=== PATIENT | male | born 1955 | race Caucasian/White ===

== ENCOUNTER 2017-02-08 02:01 | Emergency (ER) | payer BC, OTHER ==
[2017-02-08] MEDS ORDERED: Levofloxacin 500 MG Tab PO ONE (02:27)
[2017-02-08] MEDS ORDERED: Benzonatate 100 MG Cap PO ONE (02:31)
--- NOTE | 2017-02-08 02:31 | EDM.PDOC ---
ED HPI GENERAL MEDICAL PROBLEM - General Chief Complaint: Respiratory Problem Stated Complaint: COLD Time Seen by Provider: 02/08/17 02:28 - History of Present Illness INITIAL COMMENTS - FREE TEXT/NARRATIVE: four day history of non productive cough - Related Data Allergies Allergy/AdvReac Type Severity Reaction Status Date / Time No Known Allergies Allergy Verified 02/08/17 02:12 Home Meds: Home Meds Hydrochlorothiazide/Valsartan [Diovan HCT 80-12.5 MG] 1 tab PO DAILY 02/11/14 [ History] Metoprolol Succinate [Toprol XL] 100 mg PO DAILY 02/11/14 [History] Multivitamin [Multivitamins] 1 each PO DAILY 02/11/14 [History] [place]-3/DHA/Epa/Fish Oil [Fish Oil] 1 tab PO DAILY 02/11/14 [History] atorvaSTATin [Lipitor] 10 mg PO BEDTIME 02/11/14 [History] Aspirin [Nilam Chewable Aspirin] 81 mg PO DAILY 09/08/14 [History] Diclofenac Sodium [Voltaren 1% Gel] 1 applic TOP QID PRN 10/12/14 [History] Hydrocodone/Acetaminophen [Hydrocodon-Acetaminophn 10-325] 1 tab PO Q8HR PRN 09/27 [History] Tamsulosin HCl [Flomax] 0.4 mg PO DAILY 10/12/14 [History] Past Medical History HEENT History: Reports: None Cardiovascular History: Reports: Bypass, CAD Respiratory History: Reports: Other (See Below) Other Respiratory History: bronchitis Gastrointestinal History: Reports: None Genitourinary History: Reports: None Musculoskeletal History: Reports: None Neurological History: Reports: None Psychiatric History: Reports: None Endocrine/Metabolic History: Reports: None Dermatologic History: Reports: None - Infectious Disease History Infectious Disease History: Reports: Chicken Pox, Influenza - Past Surgical History HEENT Surgical History: Reports: None Cardiovascular Surgical History: Reports: Coronary Artery Bypass GI Surgical History: Reports: None Musculoskeletal Surgical History: Reports: None Social & Family History - Tobacco Use Smoking Status *Q: Former Smoker Years of Tobacco use: 15 Used Tobacco, but Quit: No Month Tobacco Last Used: 15yrs Tobacco Use Comment: quit 20 yrs ago Second Hand Smoke Exposure: Yes - Alcohol Use Days Per Week of Alcohol Use: 3 Number of Drinks Per Day: 6 Total Drinks Per Week: 18 - Recreational Drug Use Recreational Drug Use: No Drug Use in Last 12 Months: No ED ROS GENERAL - Review of Systems Review Of Systems: See Below Constitutional: Denies: Fever, Chills Respiratory: Reports: Cough. Denies: Wheezing, Sputum, Hemoptysis Cardiovascular: Denies: Chest Pain GI/Abdominal: Denies: Abdominal Pain ED EXAM, GENERAL - Physical Exam Exam: See Below General Appearance: Alert, No Apparent Distress Nose: No: Nasal Flaring Throat/Mouth: Normal Inspection, Normal Oropharynx, Normal Voice Head: No: Sinus Tenderness Respiratory/Chest: No Respiratory Distress, Lungs Clear Course - Vital Signs Last Recorded V/S: Last Vital Signs Temp 97.6 F 02/08/17 02:13 Pulse 77 02/08/17 02:13 Resp 20 02/08/17 02:13 BP 146/79 H 02/08/17 02:13 Pulse Ox 96 02/08/17 02:13 - Orders/Labs/Meds Orders: Active Orders 24 hr Category Date Time Status Benzonatate [Tessalon Perles] Med 02/08/17 02:31 Once 200 mg PO ONETIME ONE Medication Orders Benzonatate (Tessalon Perles) 200 mg PO ONETIME ONE Stop: 02/08/17 02:32 Meds: Medications Generic Name Dose Route Start Last Admin Trade Name Freq PRN Reason Stop Dose Admin Benzonatate 200 mg 02/08/17 02:31 Tessalon Perles PO 02/08/17 02:32 ONETIME ONE Discontinued Medications Generic Name Dose Route Start Last Admin Trade Name Freq PRN Reason Stop Dose Admin Levofloxacin 500 mg 02/08/17 02:27 Levaquin PO 02/08/17 02:28 ONETIME ONE Departure - Departure Time of Disposition: Disposition: Home, Self-Care 01 Condition: Good Clinical Impression: Acute bronchitis - Discharge Information Referrals: PCP,None [Primary Care Provider] - Forms: ED Department Discharge Additional Instructions: levaquin 500 mg daily x 7 days follow up if not improving within a week or so. tessalon perles 200 mg tid prn cough #20 one refill - My Orders Last 24 Hours: My Active Orders 02/08/17 02:31 Benzonatate [Tessalon Perles] 200 mg PO ONETIME ONE - Assessment/Plan Last 24 Hours: My Active Orders 02/08/17 02:31 Benzonatate [Tessalon Tracie] 200 mg PO ONETIME ONE
[2017-02-08 02:50] VITALS: BP 109/69
== END 2017-02-08 02:38 | disposition home or self-care (01) ==
LOC: MW.ED 02:01
DX: J20.9 Acute bronchitis, unspecified (principal); I25.810 Atherosclerosis of coronary artery bypass graft(s) without angina pectoris; Z95.1 Presence of aortocoronary bypass graft; Z87.891 Personal history of nicotine dependence
CPT/HCPCS: 99283; A9270

== ENCOUNTER 2017-09-20 03:56 | Observation (INO) | payer OTHER ==
[2017-09-20] MEDS ORDERED: Aspirin 81 MG Tab.Chew PO ONE (04:08)
[2017-09-20] MEDS ORDERED: Sodium Chloride 0.9% 2.5 ML Syringe FLUSH PRN (04:08)
[2017-09-20] MEDS ORDERED: Nitroglycerin 2% Oint 1 GM UD Packet TOP ONE (04:08)
[2017-09-20] MEDS: Sodium Chloride 0.9% 10 ML Syringe FLUSH PRN ×2 (04:10→04:16)
--- NOTE | 2017-09-20 04:12 | EDM.PDOC ---
ED HPI GENERAL MEDICAL PROBLEM - General Chief Complaint: Chest Pain Stated Complaint: CHEST PAINS Time Seen by Provider: 09/20/17 03:58 - History of Present Illness INITIAL COMMENTS - FREE TEXT/NARRATIVE: HISTORY AND PHYSICAL: History of present illness: The patient is a 62-year-old male with a history of hypertension and hypercholesterolemia as well as a CABG in [address] 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 He says the episodes will last several hours but he did not seek treatment with either his dairy equipment repairer or his family doctor. The patient says he came in this morning because at 2:30 he woke up and felt like his heart was beating with irregular beats and he felt some mid chest tightness associated with it and he was concerned. He was not short of breath or diaphoretic he was not nauseated nor did he vomit. The patient rated the tightness in the ED is a 1/10 and he did not take any medication prior to coming here. During the course of the EKG well in the ED he said his heart was still beating irregularly and hard even though he had a normal sinus rhythm with a normal rate. The patient arrives in our ED in our half after the onset of his symptoms drinking a warm full cup of coffee area patient is been eating and drinking normally and has had no upper respiratory symptoms fevers cough congestion and has been eating and drinking normally. Patient says he has not had a stress test or evaluation by his dairy equipment repairer in over 2 years. Review of systems: As per history of present illness and below otherwise all systems reviewed and negative. Past medical history: As per history of present illness and as reviewed below otherwise noncontributory. Surgical history: As per history of present illness and as reviewed below otherwise noncontributory. Social history: No reported history of drug or alcohol abuse. Family history: As per history of present illness and as reviewed below otherwise noncontributory. Physical exam: General: Well-developed overweight male who is nontoxic and speaking clearly in the ED. Has a slight dry cough of my evaluation his vital signs are reviewed by me HEENT: Atraumatic, normocephalic, pupils reactive, negative for conjunctival pallor or scleral icterus, mucous membranes moist, throat clear, neck supple, nontender, trachea midline. Lungs: Clear to auscultation, breath sounds equal bilaterally, chest nontender. He has a well-healed median sternotomy scar Heart: S1S2, regular, negative for clicks, rubs, or JVD. Abdomen: Soft, nondistended, nontender. Negative for masses or hepatosplenomegaly. Negative for costovertebral tenderness. Pelvis: Stable nontender. Genitourinary: Deferred. Rectal: Deferred. Extremities: Atraumatic, negative for cords or calf pain. Neurovascular unremarkable. No pedal edema Neuro: Awake, alert, oriented. Cranial nerves II through XII unremarkable. Cerebellum unremarkable. Motor and sensory unremarkable throughout. Exam nonfocal. Diagnostics: EKG CBC CMP INR troponin TSH chest x-ray Therapeutics: IV O2 monitor aspirin Nitropaste The patient's blood pressure was elevated on arrival and now after the Nitropaste it is normalized to 120s over 80s. I discussed with him and family at bedside all testing results and have recommended observation admission in light of his high risk category and presentation. The patient tells me that at home he has been noting that his blood pressures been on the low side and he called and made an appointment to see Dr. Sears our dairy equipment repairer. Here on presentation that was just the opposite. He is discussing what he would like to do with his significant other. I have also discussed with him the chest x-ray findings that do need further evaluation but likely not on this admission necessarily. According to the lab today the TSH will be delayed due to a mechanical problem with one of the machines. Patient is reluctant but agreeable for observation admission. He seems more concerned with his family history of diabetes and whether or not he has diabetes than on what he presented for today. Impression: Subjective palpitations and chest tightness/atypical chest pain Definitive disposition and diagnosis as appropriate pending reevaluation and review of above. chest Pain Score (Numeric/FACES): 1 - Related Data Allergies Allergy/AdvReac Type Severity Reaction Status Date / Time No Known Allergies Allergy Verified 09/20/17 04:08 Home Meds: Home Meds Hydrochlorothiazide/Valsartan [Diovan HCT 80-12.5 MG] 1 tab PO DAILY 02/11/14 [ History] Metoprolol Succinate [Toprol XL] 100 mg PO DAILY 02/11/14 [History] Multivitamin [Multivitamins] 1 each PO DAILY 02/11/14 [History] [place]-3/DHA/Epa/Fish Oil [Fish Oil] 1 tab PO DAILY 02/11/14 [History] atorvaSTATin [Lipitor] 10 mg PO BEDTIME 02/11/14 [History] Aspirin [Nilam Chewable Aspirin] 81 mg PO DAILY 09/08/14 [History] Tamsulosin HCl [Flomax] 0.4 mg PO DAILY 10/12/14 [History] Past Medical History HEENT History: Reports: None Cardiovascular History: Reports: Bypass, CAD Respiratory History: Reports: Other (See Below) Other Respiratory History: bronchitis Gastrointestinal History: Reports: None Genitourinary History: Reports: None Musculoskeletal History: Reports: None Neurological History: Reports: None Psychiatric History: Reports: None Endocrine/Metabolic History: Reports: None Dermatologic History: Reports: None - Infectious Disease History Infectious Disease History: Reports: Chicken Pox, Influenza - Past Surgical History HEENT Surgical History: Reports: None Cardiovascular Surgical History: Reports: Coronary Artery Bypass GI Surgical History: Reports: None Musculoskeletal Surgical History: Reports: None Social & Family History - Tobacco Use Smoking Status *Q: Former Smoker Years of Tobacco use: 15 Used Tobacco, but Quit: No Month Tobacco Last Used: 15yrs Second Hand Smoke Exposure: Yes - Alcohol Use Days Per Week of Alcohol Use: 3 Number of Drinks Per Day: 6 Total Drinks Per Week: 18 - Recreational Drug Use Recreational Drug Use: No Drug Use in Last 12 Months: No ED ROS GENERAL - Review of Systems Review Of Systems: ROS reveals no pertinent complaints other than HPI. ED EXAM, GENERAL - Physical Exam Exam: See Below (See dictation) Course - Vital Signs Last Recorded V/S: Last Vital Signs Temp 36.9 C 09/20/17 03:56 Pulse 56 L 09/20/17 04:53 Resp 18 09/20/17 04:53 BP 120/70 09/20/17 04:53 Pulse Ox 97 09/20/17 04:53 - Orders/Labs/Meds Orders: Active Orders 24 hr Category Date Time Status Cardiac Monitoring [RC] . DIRECTED Care 09/20/17 04:08 Active Oxygen Therapy, ED [RC] ASDIRECTED Care 09/20/17 04:08 Active Pulse Oximetry [RC] ASDIRECTED Care 09/20/17 04:08 Active Chest 1V Frontal [CR] Stat Exams 09/20/17 04:08 Taken COMPREHENSIVE METABOLIC PN,CMP [CHEM] Stat Lab 09/20/17 04:18 Results TROPONIN I [CHEM] Stat Lab 09/20/17 04:18 Results TSH [CHEM] Stat Lab 09/20/17 04:18 Results Sodium Chloride 0.9% [Saline Flush] Med 09/20/17 04:08 Active 10 ml FLUSH ASDIRECTED PRN Sodium Chloride 0.9% [Saline Flush] Med 09/20/17 04:08 Active 2.5 ml FLUSH ASDIRECTED PRN Saline Lock Insert [OM.PC] Stat Oth 09/20/17 04:08 Ordered Medication Orders Sodium Chloride (Saline Flush) 10 ml FLUSH ASDIRECTED PRN PRN Reason: Keep Vein Open Last Admin: 09/20/17 04:16 Dose: 10 ml Admin: 09/20/17 04:10 Dose: 10 ml Sodium Chloride (Saline Flush) 2.5 ml FLUSH ASDIRECTED PRN PRN Reason: Keep Vein Open Labs: Laboratory Tests 09/20/17 09/20/17 09/20/17 Range/Units 04:18 04:18 04:18 WBC 3.79 L (4.0-11.0) K/uL RBC 3.83 L (4.50-5.90) M/uL Hgb 11.8 L (13.0-17.0) g/dL Hct 34.9 L (38.0-50.0) % MCV 91.1 (80.0-98.0) fL MCH 30.8 (27.0-32.0) pg MCHC 33.8 (31.0-37.0) g/dL RDW Std Deviation 48.5 (28.0-62.0) fl RDW Coeff of Isela 15 (11.0-15.0) % Plt Count 145 L (150-400) K/uL MPV 9.20 (7.40-12.00) fL Neut % (Auto) 49.1 (48.0-80.0) % Lymph % (Auto) 38.0 (16.0-40.0) % Ida % (Auto) 8.4 (0.0-15.0) % Eos % (Auto) 4.2 (0.0-7.0) % Baso % (Auto) 0.3 (0.0-1.5) % Neut # (Auto) 1.9 (1.4-5.7) K/uL Lymph # (Auto) 1.4 (0.6-2.4) K/uL Ida # (Auto) 0.3 (0.0-0.8) K/uL Eos # (Auto) 0.2 (0.0-0.7) K/uL Baso # (Auto) 0.0 (0.0-0.1) K/uL Nucleated RBC % 0.0 /100WBC Nucleated RBCs # 0 K/uL INR 1.07 Sodium 138 (136-146) mmol/L Potassium 3.7 (3.5-5.1) mmol/L Chloride 104 (98-110) mmol/L Carbon Dioxide 25 (21-31) mmol/L BUN 15 (6.0-23.0) mg/dL Creatinine 0.9 (0.6-1.5) mg/dL Est Cr Clr Drug Dosing 86.74 mL/min Estimated GFR (MDRD) > 60.0 ml/min Glucose 110 (60-110) mg/dL Calcium 9.3 (8.8-10.8) mg/dL Total Bilirubin 0.6 (0.1-1.5) mg/dL AST 25 (5-40) IU/L ALT 32 (8-54) IU/L Alkaline Phosphatase 53 (40-150) Troponin I < 0.10 (0.0-0.29) NG/ML Total Protein 9.7 H (6.0-8.0) g/dL Albumin 3.3 L (3.4-4.8) g/dL Globulin 6.4 H (2.0-3.5) g/dL Albumin/Globulin Ratio 0.5 L (1.3-2.8) Meds: Medications Generic Name Dose Route Start Last Admin Trade Name Freq PRN Reason Stop Dose Admin Sodium Chloride 10 ml 09/20/17 04:08 09/20/17 04:16 Saline Flush FLUSH 10 ml ASDIRECTED PRN Administration Keep Vein Open Sodium Chloride 2.5 ml 09/20/17 04:08 Saline Flush FLUSH ASDIRECTED PRN Keep Vein Open Discontinued Medications Generic Name Dose Route Start Last Admin Trade Name Elaina PRN Reason Stop Dose Admin Aspirin 324 mg 09/20/17 04:08 09/20/17 04:15 Aspirin PO 09/20/17 04:09 324 mg ONETIME ONE Administration Nitroglycerin 0.5 gm 09/20/17 04:08 09/20/17 04:15 Nitro-Bid 2% TOP 09/20/17 04:09 0.5 gm ONETIME ONE Administration Departure - Departure Time of Disposition: 05:08 Disposition: Refer to Observation Condition: Good Clinical Impression: Atypical chest pain, Irregular heartbeat - Discharge Information Referrals: PCP,None [Primary Care Provider] - Forms: ED Department Discharge - My Orders Last 24 Hours: My Active Orders 09/20/17 04:08 Cardiac Monitoring [RC] . DIRECTED Oxygen Therapy, ED [RC] ASDIRECTED Pulse Oximetry [RC] ASDIRECTED Chest 1V Frontal [CR] Stat Sodium Chloride 0.9% [Saline Flush] 10 ml FLUSH ASDIRECTED PRN Sodium Chloride 0.9% [Saline Flush] 2.5 ml FLUSH ASDIRECTED PRN Saline Lock Insert [OM.PC] Stat 09/20/17 04:18 COMPREHENSIVE METABOLIC PN,CMP [CHEM] Stat TROPONIN I [CHEM] Stat TSH [CHEM] Stat - Assessment/Plan Last 24 Hours: My Active Orders 09/20/17 04:08 Cardiac Monitoring [RC] . DIRECTED Oxygen Therapy, ED [RC] ASDIRECTED Pulse Oximetry [RC] ASDIRECTED Chest 1V Frontal [CR] Stat Sodium Chloride 0.9% [Saline Flush] 10 ml FLUSH ASDIRECTED PRN Sodium Chloride 0.9% [Saline Flush] 2.5 ml FLUSH ASDIRECTED PRN Saline Lock Insert [OM.PC] Stat 09/20/17 04:18 COMPREHENSIVE METABOLIC PN,CMP [CHEM] Stat TROPONIN I [CHEM] Stat TSH [CHEM] Stat
[2017-09-20 04:41] LABS: CHLORIDE,CL 104 mmol/L (98-110); SODIUM,NA 138 mmol/L (136-146)
--- NOTE | 2017-09-20 08:12 | PCM.HP ---
H&P History of Present Illness - General Date of Service: 09/20/17 Admit Problem/Dx: Palpitations Source of Information: Patient History Limitations: Reports: No Limitations - History of Present Illness Initial Comments - Free Text/Narative: This 62 year old male with pmh of CAD, HTN, BPH, and CABG x4 in 2000 presented to the ED with feelings of irregular heartbeat. He reports for the last 2-3 weeks he has noticed, mainly in the evening or at night palpitations or irregular heartbeats. He denies associated symptoms such as dyspnea, lightheadedness. Last night he woke up around 3 am having these palpitations, but had some chest discomfort with it. No radiation of the pain, the pain was more of a tightness. Again no other associated symptoms. He reports he has had these feelings on and off since his CABG. He denies recent follow up with Cardiology and he sees his PCP once a year for meds. He has not had a stress test in a long time. He denies recent illness such as URI, no fevers, cough, abdominal pain or urinary troubles. No headaches. He reports drinking 2-3 cups of coffee daily, no other pop or energy drinks, does drink a lot of Vitamin Water. He reports his BP at home has been low recently, such as 96/50s. He stopped his Valsartan/HCTZ on his own and reports BP has been good. Again he had no symptoms with this low BP. Because of this, he made appointments with Dr. Cruz, his PCP and Dr Schneider for a full workup, which are scheduled for next week Sep 25 and . In the ED labwork all WNL. Troponin negative. EKG SR with no signs of acute ischemia. He was telling them he was having the irregular beats and palpitations , but nothing was noted on EKG or the monitor. BP on arrival to ED was 190/ 100s. He was given Nitro paste which lowered BP to 150s/80s. CXR negative for cardiopulmonary disease, but did not lucenies in bilateral clavicles and L proximal humerus. He will be admitted observation for atypical chest pain and palpitations. chest Pain Score (Numeric/FACES): 1 - Related Data Allergies/Adverse Reactions: Allergies Allergy/AdvReac Type Severity Reaction Status Date / Time No Known Allergies Allergy Verified 09/20/17 04:08 Home Medications: Home Meds Hydrochlorothiazide/Valsartan [Diovan HCTZ 80-12.5 MG] 1 tab PO DAILY 02/11/14 [ History] Metoprolol Succinate [Toprol XL 100mg] 100 mg PO BID 02/11/14 [History] Multivitamin [Multivitamins] 1 each PO DAILY 02/11/14 [History] [place]-3/DHA/Epa/Fish Oil [Fish Oil Dr 500 mg Softgel] 1 tab PO DAILY 02/11/14 [ History] atorvaSTATin [Lipitor] 10 mg PO BEDTIME 02/11/14 [History] Aspirin [Nilam Chewable Aspirin] 81 mg PO DAILY 09/08/14 [History] Tamsulosin HCl [Flomax] 0.4 mg PO DAILY 10/12/14 [History] Past Medical History - Past Health History Medical/Surgical History: Denies Medical/Surgical History HEENT History: Reports: None Cardiovascular History: Reports: Bypass, CAD, High Cholesterol, Hypertension. Denies: Afib, Blood Clots/VTE/DVT, Heart Failure, [place] Respiratory History: Reports: Bronchitis, Recurrent. Denies: COPD, PE, Sleep Apnea Gastrointestinal History: Reports: None. Denies: GERD, GI Bleed Genitourinary History: Reports: BPH Musculoskeletal History: Reports: None Neurological History: Reports: None. Denies: CVA, Migraines, TIA Psychiatric History: Reports: None Endocrine/Metabolic History: Reports: Obesity/BMI 30+. Denies: Diabetes, Type II, Hypothyroidism Dermatologic History: Reports: None - Infectious Disease History Infectious Disease History: Reports: Chicken Pox, Influenza - Past Surgical History HEENT Surgical History: Reports: None Cardiovascular Surgical History: Reports: Coronary Artery Bypass (x4) GI Surgical History: Reports: None Musculoskeletal Surgical History: Reports: None Social & Family History - Family History Cardiac: Reports: CAD, High Cholesterol, Hypertension, [place] Endocrine/Metabolic: Reports: Diabetes, Type I (brother), Diabetes, type II ( mother and brothers), Obesity/MBI 30+ - Tobacco Use Smoking Status *Q: Former Smoker Years of Tobacco use: 20 Packs/Tins Daily: 1 Used Tobacco, but Quit: Yes Month Tobacco Last Used: 15 years ago Second Hand Smoke Exposure: Yes - Caffeine Use Caffeine Use: Reports: Coffee (2-3 cups daily) - Alcohol Use Days Per Week of Alcohol Use: 3 Number of Drinks Per Day: 1 Total Drinks Per Week: 3 Alcohol Use Frequency: Rarely, Socially - Recreational Drug Use Recreational Drug Use: No Drug Use in Last 12 Months: No - Living Situation & Occupation Occupation: Employed H&P Review of Systems - Review of Systems: Review Of Systems: See Below General: Reports: No Symptoms. Denies: Fever, Chills, Malaise, Weakness HEENT: Reports: No Symptoms. Denies: Headaches, Sinus Congestion, Sore Throat Pulmonary: Reports: No Symptoms. Denies: Shortness of Breath, Wheezing, Cough, Sputum Cardiovascular: Reports: Chest Pain (last evening with palpitations, none since arrival to ED), Palpitations, Blood Pressure Problem. Denies: Dyspnea on Exertion, Edema, Lightheadedness, Syncope Gastrointestinal: Reports: No Symptoms, Flatus. Denies: Abdominal Pain, Black Stool, Bloody Stool, Nausea, Vomiting Genitourinary: Reports: No Symptoms. Denies: Dysuria, Frequency, Burning, Pain Musculoskeletal: Reports: No Symptoms. Denies: Neck Pain, Shoulder Pain, Arm Pain Skin: Reports: No Symptoms Psychiatric: Reports: No Symptoms Neurological: Reports: No Symptoms Hematologic/Lymphatic: Reports: No Symptoms Immunologic: Reports: No Symptoms Exam - Exam Exam: See Below - Vital Signs Vital Signs: Last Vital Signs Temp 98.3 F 09/20/17 05:50 Pulse 58 L 09/20/17 05:50 Resp 16 09/20/17 05:50 BP 143/81 H 09/20/17 05:50 Pulse Ox 98 09/20/17 05:50 Weight: 95.527 kg - Exam Quality Assessment: DVT Prophylaxis General: Alert, Oriented, Cooperative, Mild Distress HEENT: Conjunctiva Clear, Mucosa Moist & [place], Posterior Pharynx Clear, TMs Clear Neck: Supple, Trachea Midline, Full Range of Motion. No: Lymphadenopathy Lungs: Clear to Auscultation, Normal Respiratory Effort Cardiovascular: Regular Rate, Regular Rhythm, Normal S1, Normal S2. No: Irregular Rhythm, Tachycardia, Systolic Murmur GI/Abdominal Exam: Normal Bowel Sounds, Soft, Non-Tender, No Organomegaly, No Distention, No Abnormal Bruit, No Mass, Pelvis Stable Back Exam: Normal Inspection, Full Range of Motion, NT Extremities: Normal Inspection, Normal Range of Motion, Non-Tender, No Pedal Edema, Normal Capillary Refill Neurological: Cranial Nerves Intact, Reflexes Equal Bilateral Neuro Extensive - Mental Status: Alert, Oriented x3, Normal Mood/Affect, Normal Cognition Psychiatric: Alert, Normal Affect, Normal Mood - Patient Data Result Diagrams: 09/20/17 04:18 09/20/17 04:18 *Q Meaningful Use (ADM) - VTE *Q VTE Criteria *Q: - Stroke *Q Stroke Criteria *Q: - AMI *Q AMI Criteria *Q: - Problem List (1) Atypical chest pain SNOMED Code(s): 586115354 ICD Code: R07.89 - OTHER CHEST PAIN Status: Acute (2) Palpitation SNOMED Code(s): 12467712 ICD Code: R00.2 - PALPITATIONS Status: Acute (3) BPH (benign prostatic hyperplasia) SNOMED Code(s): 028377727 ICD Code: N40.0 - BENIGN PROSTATIC HYPERPLASIA WITHOUT LOWER URINRY TRACT SYMP Status: Chronic Qualifiers: Lower urinary tract symptom detail: urinary frequency (4) CAD (coronary artery disease) SNOMED Code(s): 13491980 ICD Code: I25.10 - ATHSCL HEART DISEASE OF [place] CORONARY ARTERY W/O ANG PCTRS Status: Chronic Qualifiers: Coronary Disease-Associated Artery/Lesion type: [place] artery [place] vs. transplanted heart: [place] heart Associated angina: without angina Qualified Code(s): I25.10 - Atherosclerotic heart disease of [place] coronary artery without angina pectoris (5) Hx of CABG SNOMED Code(s): 767337273 ICD Code: Z95.1 - PRESENCE OF AORTOCORONARY BYPASS GRAFT Status: Chronic (6) HTN (hypertension) SNOMED Code(s): 61197836 ICD Code: I10 - ESSENTIAL (PRIMARY) HYPERTENSION Status: Chronic Qualifiers: Hypertension type: essential hypertension Qualified Code(s): I10 - Essential (primary) hypertension Problem List Initiated/Reviewed/Updated: Yes Orders Last 24hrs: Active Orders 24 hr Category Date Time Status Communication Order [RC] STAT Care 09/20/17 08:09 Active Telemetry Monitoring [Cardiac Monitoring] [RC] . Care 09/20/17 05:26 Active DIRECTED Heart Healthy Diet [DIET] Diet 09/20/17 Breakfast Active GLYCOSYLATED HEMOGLOBIN,HGBA1C [CHEM] Routine Lab 09/20/17 08:08 Ordered LIPID PANEL [CHEM] Routine Lab 09/20/17 08:08 Ordered TROPONIN I [CHEM] Q6H Lab 09/20/17 10:18 Ordered TROPONIN I [CHEM] Q6H Lab 09/20/17 16:18 Ordered Aspirin Med 09/21/17 09:00 Ordered 81 mg PO DAILY Hydrochlorothiazide/Valsartan [Diovan HCTZ 80-12.5 MG] Med 09/20/17 09:00 Ordered 1 tab PO DAILY Metoprolol Succinate [Toprol XL] Med 09/20/17 09:00 Ordered 100 mg PO BID Multivitamin [Multivitamins] Med 09/20/17 09:00 Ordered 1 each PO DAILY [place]-3/DHA/Epa/Fish Oil [Fish Oil Dr 500 mg Softgel] Med 09/20/17 09:00 Ordered 1 tab PO DAILY Tamsulosin [Flomax] Med 09/20/17 09:00 Ordered 0.4 mg PO DAILY atorvaSTATin [Lipitor] Med 09/20/17 21:00 Ordered 10 mg PO BEDTIME Medication Orders Aspirin (Aspirin) 81 mg PO DAILY [facility] Atorvastatin Calcium (Lipitor) 10 mg PO BEDTIME [facility] Metoprolol Succinate (Toprol Xl) 100 mg PO BID [facility] Non-Formulary Medication (Hydrochlorothiazide/Valsartan [Diovan Hctz 80-12.5 Mg] ) 1 tab PO DAILY [facility] Non-Formulary Medication (Multivitamin [Multivitamins]) 1 each PO DAILY [facility] Non-Formulary Medication ([place]-3/Dha/Epa/Fish Oil [Fish Oil Dr 500 Mg Softgel] ) 1 tab PO DAILY [facility] Sodium Chloride (Saline Flush) 10 ml FLUSH ASDIRECTED PRN PRN Reason: Keep Vein Open Last Admin: 09/20/17 04:16 Dose: 10 ml Admin: 09/20/17 04:10 Dose: 10 ml Sodium Chloride (Saline Flush) 2.5 ml FLUSH ASDIRECTED PRN PRN Reason: Keep Vein Open Tamsulosin HCl (Flomax) 0.4 mg PO DAILY [facility] Assessment/Plan Comment:: This 62 year old male admitted with atypical chest pain and papitations 1. Atypical chest pain: Trend troponins, monitor on telemetry. Keep outpatient appointments and scheduled outpatient stress test. A1c 5.9 and cholesterol well controlled. Will hold valsartan/HCTZ and monitor BP on metoprolol alone. Asked him to, if possible, have someone bring in his home BP cuff and we can check it again ours to insure it is reading correctly. Spoke with patient regarding findings on CXR on clavicle and L humerus. Will obtain chest CT today and follow up with results. Will need PCP to follow for further needs. 12:30: Spoke with patient and his brother in room regarding Chest CT results. These show extensive small diffuse lucent areas within the visualized osseous structures, this most likely represents multiple myeloma versus metastatic disease, chronic appearing right 10th rib fracture, extensive round lytic changes within the visualized osseous structures including clavicles, sternum and spine. I have notified patient PCP, Dr Cruz and have ordered peripheral smear and free light chain gammopathy diagnostic, which includes SPEP. Adryan is following up with Dr Cruz on Sep 25. He is aware of pending labwork and any further work up or appointments will be arranged through Dr Cruz. I will hold off on arranging stress test and allow Dr Schneider to see patient at follow up on Sep 26 and discuss further workup at that time with possible diagnosis of multiple myeloma. 2. Palpitations: Encouraged to lessen coffee intake. No irregular rhythms noted on telemetry. 3. BP: Continue metoprolol 4. CAD: Continue statin and ASA. VTE prophylaxis: SCDs Dispo: Likely discharge this evening after last troponin. Discharge Plan: Final troponin negative. patient has no futher complaints. Telemetry has remained SR with to arrhythmias noted. Follow up has been arrange regarding Chest CT and blood work pending. Dr Cruz is aware and appointment is scheduled on Sep 25. He also has follow up with Dr Crowder on Sep 26. He is to continue all medications as previously prescribed. He is to return to ED or clinic if concerns should arise.
[2017-09-20] MEDS ORDERED: Fish Oil/Omega-3 Fatty Acids 1 Gm Cap PO SCH (09:00)
[2017-09-20] MEDS ORDERED: Multivitamins with Iron/Calcium/Folic Acid/Minerals Tab PO SCH (09:00)
[2017-09-20] MEDS ORDERED: Metoprolol Succinate 100 MG Tab.ER PO SCH (09:00)
[2017-09-20] MEDS ORDERED: Hydrochlorothiazide 25 MG Tab PO SCH (09:00)
[2017-09-20] MEDS ORDERED: Tamsulosin 0.4 MG Cap.ER PO SCH (09:00)
[2017-09-20] MEDS ORDERED: Acetaminophen 325 MG Tab PO PRN (09:29)
--- NOTE | 2017-09-20 10:51 | CR ---
EXAM DATE: 09/20/17 PATIENT'S AGE: 62 Patient: TONY MOORE Facility: [place], [place] Site . Site : [id number] Study: XRay Chest [id number]/8/2018 4:37:45 AM Ordering Physician: Lonnie Coto Final Report: Indication: Chest pain Technique: Chest 1 view Comparison: 05/01/2015 Findings/Impression: Cardiovascular and mediastinum: Mild cardiomegaly, partially related to the portable technique. Sternotomy sutures and mediastinal clips. Lungs and pleural space: Lungs are clear. No sign of infiltrate or mass. No sign of pleural effusion. No pneumothorax. Bones and soft tissues: Apparent lucent foci in the clavicles and proximal left humerus. Recommend further imaging evaluation. Dictated by Ryder Redding MD @ 09/20/2017 4:55:27 AM Dictated by: Ryder Redding MD @ 09/20/2017 04:55:32 (Electronic Signature) Report Signed by Proxy. KRISTINE
--- NOTE | 2017-09-20 11:41 | CT ---
EXAMINATION: CT chest without contrast HISTORY: Evaluate lucencies COMPARISON: Chest radiograph from the same day TECHNIQUE: Axial CT images obtained through the chest without contrast. Coronal and sagittal reconstr uctions obtained. FINDINGS: The lungs are clear without focal consolidation. No pleural effusion or pneumothorax. The h eart is normal in size without a pericardial effusion. Median sternotomy wires are noted. Coronary ar donovan calcifications are present. No mediastinal, hilar, or axillary lymphadenopathy. The central airw ays are clear. Cholelithiasis. Otherwise the visualized images of the upper abdomen appear normal. There is a chronic appearing right 10th rib fracture. Extensive round lytic changes noted within the visualized osseous structures including the clavicles, sternum, and spine. IMPRESSION: 1. Extensive small diffuse lucent areas within the visualized osseous structures. This mostly likely represents multiple myeloma versus metastatic disease. 2. No acute cardiopulmonary findings. 3. Cholelithiasis without evidence of cholecystitis.
[2017-09-20 16:02] VITALS: BP 146/72
[2017-09-20] MEDS ORDERED: atorvaSTATin 10 MG Tab PO SCH (21:00)
[2017-09-21] MEDS ORDERED: Aspirin 81 MG Tab.Chew PO SCH (09:00)
== END 2017-09-20 17:30 | disposition home or self-care (01) ==
LOC: MW.ED 03:56 → MW.MS 05:09
PROVIDERS: ADMIT Family Medicine; ATTEND Family Medicine
DX: R07.89 Other chest pain (principal); R00.2 Palpitations; I25.10 Atherosclerotic heart disease of native coronary artery without angina pectoris; I10 Essential (primary) hypertension; N40.0 Benign prostatic hyperplasia without lower urinary tract symptoms; E78.00 Pure hypercholesterolemia, unspecified; E66.9 Obesity, unspecified; Z68.30 Body mass index [BMI] 30.0-30.9, adult; Z95.1 Presence of aortocoronary bypass graft; Z79.899 Other long term (current) drug therapy; Z79.82 Long term (current) use of aspirin; Z87.891 Personal history of nicotine dependence
CPT/HCPCS: 36415; 71045; 71250; 80053; 80061; 83036; 83883; 84165; 84443; 84484; 85025; 85610; 86334; 88104; 93005; 99285; A9270; G0378; 99284

== ENCOUNTER 2017-10-17 20:14 | Emergency (ER) | payer OTHER ==
[2017-10-17] MEDS ORDERED: Albuterol/Ipratropium 3.0-0.5 MG/3 ML Neb Soln NEB ONE (20:37)
--- NOTE | 2017-10-17 20:41 | EDM.PDOC ---
ED HPI GENERAL MEDICAL PROBLEM - General Chief Complaint: Respiratory Problem Stated Complaint: COUGH/CONGESTION Time Seen by Provider: 10/17/17 20:23 - History of Present Illness INITIAL COMMENTS - FREE TEXT/NARRATIVE: HISTORY AND PHYSICAL: History of present illness: The patient is a 62-year-old male with a history of hypertension and hypercholesterolemia CABG in 2000 BPH and who is scheduled for an angioplasty next week in [place] for a blockage in who presents with a 5-7 day history of feeling rundown, body aches and malaise, some intermittent fevers and 2 days of dry cough hacking cough and a runny nose. The patient says that the fever was very high but he has not had fever over the last 2 days. He's had no abdominal pain vomiting or diarrhea and is taking his fluids. He has no urinary complaints. The patient has a significant history in that he was admitted here September 20 for chest pain and had a rule out down and then subsequent he had a stress test and was referred to [facility] in [place] where he is going to have his heart catheter. He currently has no chest pain or heart pain. He does not feel short of breath When he is coughing. On that last admission there were some abnormalities seen in his clavicles and he had a workup which has connected him with our oncology center for workup of multiple myeloma. He currently has that workup in hold in order to get the cardiac duration settled next week and then he will begin further evaluation and care for the multiple myeloma afterwards. He is concerned because of the fevers cough runny nose as he does not want to stop any of the plans or appointments he has in place. He says he gets bronchitis on a regular basis and he is not a smoker. Again he does not have any cardiac chest pain or shortness of breath here nor has he had that over the last several days. Review of systems: As per history of present illness and below otherwise all systems reviewed and negative. Past medical history: As per history of present illness and as reviewed below otherwise noncontributory. Surgical history: As per history of present illness and as reviewed below otherwise noncontributory. Social history: No reported history of drug or alcohol abuse. Family history: As per history of present illness and as reviewed below otherwise noncontributory. Physical exam: General: Well-developed well-nourished man who is a dry cough on my evaluation and slight nasal quality to voice. Vital signs are reviewed by me and he is not breathless. HEENT: Atraumatic, normocephalic, pupils reactive, negative for conjunctival pallor or scleral icterus, mucous membranes moist, throat clear, neck supple, nontender, trachea midline. Lungs: Clear to auscultation, breath sounds equal bilaterally, chest nontender. No work of breathing, no sensory muscle use no wheezing or stridor but some occasional coarse breath sounds bilaterally Heart: S1S2, regular rate and rhythm no overt murmurs. Abdomen: Soft, nondistended, nontender. NABS Pelvis: Stable nontender. Genitourinary: Deferred. Rectal: Deferred. Extremities: Atraumatic, negative for cords or calf pain. Neurovascular unremarkable. Neuro: Awake, alert, oriented. Cranial nerves II through XII unremarkable. Cerebellum unremarkable. Motor and sensory unremarkable throughout. Exam nonfocal. Diagnostics: EKG chest x-ray CBC CMP lactic acid influenza swab blood cultures Therapeutics: DuoNeb spacer and spacer teaching Patient states that he does feel better after the nebulizer treatment and we will give him a spacer and albuterol for home. He is aware of all testing results and need for follow-up. I will give him Insty Meds for albuterol, Z-Bashir and cough medication Phenergan with codeine Impression: Acute bronchitis Definitive disposition and diagnosis as appropriate pending reevaluation and review of above. chest Pain Score (Numeric/FACES): 2 - Related Data Allergies Allergy/AdvReac Type Severity Reaction Status Date / Time No Known Allergies Allergy Verified 10/17/17 20:27 Home Meds: Home Meds Hydrochlorothiazide/Valsartan [Diovan HCTZ 80-12.5 MG] 1 tab PO DAILY 02/11/14 [ History] Metoprolol Succinate [Toprol XL 100mg] 100 mg PO BID 02/11/14 [History] Multivitamin [Multivitamins] 1 each PO DAILY 02/11/14 [History] [place]-3/DHA/Epa/Fish Oil [Fish Oil Dr 500 mg Softgel] 1 tab PO DAILY 02/11/14 [ History] atorvaSTATin [Lipitor] 10 mg PO BEDTIME 02/11/14 [History] Aspirin [Nilam Chewable Aspirin] 81 mg PO DAILY 09/08/14 [History] Tamsulosin HCl [Flomax] 0.4 mg PO DAILY 10/12/14 [History] Past Medical History - Past Health History Medical/Surgical History: Denies Medical/Surgical History HEENT History: Reports: None Cardiovascular History: Reports: Bypass, CAD, High Cholesterol, Hypertension Respiratory History: Reports: Bronchitis, Recurrent, Pneumonia, Recurrent Other Respiratory History: bronchitis Gastrointestinal History: Reports: None Genitourinary History: Reports: BPH Musculoskeletal History: Reports: None Neurological History: Reports: None Psychiatric History: Reports: None Endocrine/Metabolic History: Reports: Obesity/BMI 30+ Hematologic History: Reports: None Immunologic History: Reports: None Other Oncologic History: stated possible melanoma Dermatologic History: Reports: None - Infectious Disease History Infectious Disease History: Reports: None - Past Surgical History Head Surgeries/Procedures: Reports: None HEENT Surgical History: Reports: None Cardiovascular Surgical History: Reports: Coronary Artery Bypass GI Surgical History: Reports: None Musculoskeletal Surgical History: Reports: None Social & Family History - Family History Family Medical History: Noncontributory Cardiac: Reports: CAD, High Cholesterol, Hypertension, [place] Endocrine/Metabolic: Reports: Diabetes, Type I, Diabetes, type II, Obesity/MBI 30+ - Tobacco Use Smoking Status *Q: Former Smoker Years of Tobacco use: 20 Packs/Tins Daily: 1 Used Tobacco, but Quit: Yes Month Tobacco Last Used: 15 years ago Second Hand Smoke Exposure: Yes - Caffeine Use Caffeine Use: Reports: Coffee (2-3 cups daily) - Alcohol Use Days Per Week of Alcohol Use: 3 Number of Drinks Per Day: 1 Total Drinks Per Week: 3 - Recreational Drug Use Recreational Drug Use: No Drug Use in Last 12 Months: No - Living Situation & Occupation Occupation: Employed ED ROS GENERAL - Review of Systems Review Of Systems: ROS reveals no pertinent complaints other than HPI. ED EXAM, GENERAL - Physical Exam Exam: See Below (See dictation) Course - Vital Signs Last Recorded V/S: Last Vital Signs Temp 36.6 C 10/17/17 20:28 Pulse 76 10/17/17 20:28 Resp 19 10/17/17 20:28 BP 177/97 H 10/17/17 20:28 Pulse Ox 98 10/17/17 20:28 - Orders/Labs/Meds Orders: Active Orders 24 hr Category Date Time Status Communication Order [RC] STAT Care 10/17/17 22:33 Ordered EKG Documentation Completion [RC] STAT Care 10/17/17 20:36 Active RT Aerosol Therapy [RC] ASDIRECTED Care 10/17/17 20:37 Active Chest 2V [CR] Stat Exams 10/17/17 20:36 Taken CULTURE BLOOD [BC] Stat Lab 10/17/17 20:58 Received CULTURE BLOOD [BC] Stat Lab 10/17/17 21:04 Received Blood Culture x2 Reflex Set [OM.PC] Stat Oth 10/17/17 20:36 Ordered Labs: Laboratory Tests 10/17/17 10/17/17 10/17/17 Range/Units 20:58 21:04 21:04 WBC 4.57 (4.0-11.0) K/uL RBC 3.27 L (4.50-5.90) M/uL Hgb 10.0 L (13.0-17.0) g/dL Hct 29.7 L (38.0-50.0) % MCV 90.8 (80.0-98.0) fL MCH 30.6 (27.0-32.0) pg MCHC 33.7 (31.0-37.0) g/dL RDW Std Deviation 49.0 (28.0-62.0) fl RDW Coeff of Isela 15 (11.0-15.0) % Plt Count 161 (150-400) K/uL MPV 8.90 (7.40-12.00) fL Neut % (Auto) 62.5 (48.0-80.0) % Lymph % (Auto) 24.3 (16.0-40.0) % [place] % (Auto) 8.8 (0.0-15.0) % Eos % (Auto) 4.2 (0.0-7.0) % Baso % (Auto) 0.2 (0.0-1.5) % Neut # (Auto) 2.9 (1.4-5.7) K/uL Lymph # (Auto) 1.1 (0.6-2.4) K/uL [place] # (Auto) 0.4 (0.0-0.8) K/uL Eos # (Auto) 0.2 (0.0-0.7) K/uL Baso # (Auto) 0.0 (0.0-0.1) K/uL Nucleated RBC % 0.0 /100WBC Nucleated RBCs # 0 K/uL Lactate 1.0 (0.20-2.00) mmol/L Sodium 137 (136-148) mmol/L Potassium 3.6 (3.5-5.1) mmol/L Chloride 103 (98-107) mmol/L Carbon Dioxide 25.0 (21.0-32.0) mmol/L BUN 7 (7.0-18.0) mg/dL Creatinine 0.9 (0.8-1.3) mg/dL Est Cr Clr Drug Dosing 86.74 mL/min Estimated GFR (MDRD) > 60.0 ml/min Glucose 107 H (74-106) mg/dL Calcium 8.3 L (8.5-10.1) mg/dL Total Bilirubin 0.3 (0.2-1.0) mg/dL AST 19 (5-40) IU/L ALT 25 (8-54) IU/L Alkaline Phosphatase 48 (46-116) U/L Total Protein 9.2 H (6.4-8.2) g/dL Albumin 2.0 L (3.4-5.0) g/dL Globulin 7.2 H (2.0-3.5) g/dL Albumin/Globulin Ratio 0.3 L (1.3-2.8) Meds: Medications Discontinued Medications Generic Name Dose Route Start Last Admin Trade Name Freq PRN Reason Stop Dose Admin Albuterol/Ipratropium 3 ml 10/17/17 20:37 10/17/17 21:02 Duoneb 3.0-0.5 Mg/3 Ml NEB 10/17/17 20:38 3 ml ONETIME ONE Administration Departure - Departure Time of Disposition: 22:34 Disposition: Home, Self-Care 01 Condition: Good Clinical Impression: Acute bronchitis Qualifiers: Bronchitis organism: unspecified organism Qualified Code(s): J20.9 - Acute bronchitis, unspecified - Discharge Information Referrals: Rich Cruz MD [Primary Care Provider] - Forms: ED Department Discharge Additional Instructions: The following information is given to patients seen in the emergency department who are being discharged to home. This information is to outline your options for follow-up care. We provide all patients seen in our emergency department with a follow-up referral. The need for follow-up, as well as the timing and circumstances, are variable depending upon the specifics of your emergency department visit. If you don't have a primary care physician on staff, we will provide you with a referral. We always advise you to contact your personal physician following an emergency department visit to inform them of the circumstance of the visit and for follow-up with them and/or the need for any referrals to a consulting specialist. The emergency department will also refer you to a specialist when appropriate. This referral assures that you have the opportunity for followup care with a specialist. All of these measure are taken in an effort to provide you with optimal care, which includes your followup. Under all circumstances we always encourage you to contact your private physician who remains a resource for coordinating your care. When calling for followup care, please make the office aware that this follow-up is from your recent emergency room visit. If for any reason you are refused follow-up, please contact the [facility] emergency department at and ask to speak to the emergency department charge nurse. [facility] Primary care- [place] [address] Rest push hydration and take all home meds as well as use all new medications as prescribed. Please call and follow-up with your provider in the clinic for reevaluation further care and return to ER as needed and as discussed. Continue with Tylenol/ibuprofen for fevers. You have been given Insty Meds for albuterol which you are to use with her spacer, Phenergan with codeine for sleep times, and a Z-Bashir. - My Orders Last 24 Hours: My Active Orders 10/17/17 20:36 EKG Documentation Completion [RC] STAT Chest 2V [CR] Stat Blood Culture x2 Reflex Set [OM.PC] Stat 10/17/17 20:37 RT Aerosol Therapy [RC] ASDIRECTED 10/17/17 20:58 CULTURE BLOOD [BC] Stat 10/17/17 21:04 CULTURE BLOOD [BC] Stat 10/17/17 22:33 Communication Order [RC] STAT - Assessment/Plan Last 24 Hours: My Active Orders 10/17/17 20:36 EKG Documentation Completion [RC] STAT Chest 2V [CR] Stat Blood Culture x2 Reflex Set [OM.PC] Stat 10/17/17 20:37 RT Aerosol Therapy [RC] ASDIRECTED 10/17/17 20:58 CULTURE BLOOD [BC] Stat 10/17/17 21:04 CULTURE BLOOD [BC] Stat 10/17/17 22:33 Communication Order [RC] STAT
[2017-10-17 21:38] LABS: CHLORIDE,CL 103 mmol/L (98-107); SODIUM,NA 137 mmol/L (136-148)
[2017-10-17 22:52] VITALS: BP 160/88
--- NOTE | 2017-10-18 10:13 | CR ---
EXAM DATE: 10/17/17 PATIENT'S AGE: 62 Patient: TONY MOORE Facility: [place], [place] Site . Site : 1955 Study: XRay Chest [id number] 9:28:16 PM Ordering Physician: Lonnie Coto Final Report: INDICATION: Shortness of breath TECHNIQUE: Chest 2 views. COMPARISON: June 20, 2011 FINDINGS: Cardiovascular and mediastinum: Status post median sternotomy. Stable cardiac size. Lungs and pleural spaces: Lungs are clear. No sign of infiltrate or mass. No sign of pleural effusion. No pneumothorax. Bones and soft tissues: No significant findings. IMPRESSION: No sign of acute disease. Dictated by Freya Smith MD @ Oct 17 2017 9:31PM (Electronic Signature) Report Signed by Proxy. [facility]
== END 2017-10-17 22:48 | disposition home or self-care (01) ==
LOC: MW.ED 20:14
DX: J20.9 Acute bronchitis, unspecified (principal); E78.00 Pure hypercholesterolemia, unspecified; I10 Essential (primary) hypertension; Z79.899 Other long term (current) drug therapy; Z79.82 Long term (current) use of aspirin; Z87.891 Personal history of nicotine dependence
CPT/HCPCS: 36415; 71046; 71046-26; 80053; 83605; 85025; 87040; 87804; 93005; 94640; 99283; 99284-25

== ENCOUNTER 2017-10-31 09:30 | Emergency (ER) | payer OTHER ==
--- NOTE | 2017-10-31 09:44 | EDM.PDOC ---
ED HPI GENERAL MEDICAL PROBLEM - General Chief Complaint: Respiratory Problem Stated Complaint: COUGH Time Seen by Provider: 10/31/17 09:35 - History of Present Illness INITIAL COMMENTS - FREE TEXT/NARRATIVE: HISTORY AND PHYSICAL: History of present illness: Patient 62-year-old white male presents with a concern of cough and right rib pain he states he was seen on the seventh in the ER and was treated with antibiotics and inhaler he states he's been no significant improvement in the interim he has had a cardiac angiogram that was unremarkable. He is here concerned about pain medication for this right-sided rib pain related to the cough. No shortness of breath nausea vomiting or other complaints. Patient has a history of multiple myeloma Review of systems: As per history of present illness and below otherwise all systems reviewed and negative. Past medical history: As per history of present illness and as reviewed below otherwise noncontributory. Surgical history: As per history of present illness and as reviewed below otherwise noncontributory. Social history: No reported history of drug or alcohol abuse. Family history: As per history of present illness and as reviewed below otherwise noncontributory. Physical exam: HEENT: Atraumatic, normocephalic, pupils reactive, negative for conjunctival pallor or scleral icterus, mucous membranes moist, throat clear, neck supple, nontender, trachea midline. Lungs: Clear to auscultation, breath sounds equal bilaterally, chest right- sided rib tenderness in the region of 8 and ninth ribs. Heart: S1S2, regular, negative for clicks, rubs, or JVD. Abdomen: Soft, nondistended, nontender. Negative for masses or hepatosplenomegaly. Negative for costovertebral tenderness. Pelvis: Stable nontender. Genitourinary: Deferred. Rectal: Deferred. Extremities: Atraumatic, negative for cords or calf pain. Neurovascular unremarkable. Neuro: Awake, alert, oriented. Cranial nerves II through XII unremarkable. Cerebellum unremarkable. Motor and sensory unremarkable throughout. Exam nonfocal. Diagnostics: CBC CMP chest x-ray with right ribs Therapeutics: None Impression: #1 history tracheal bronchitis #2 right-sided chest pain probable muscle skeletal etiology #3 history of multiple myeloma Definitive disposition and diagnosis as appropriate pending reevaluation and review of above. Right Thoracic Pain Score (Numeric/FACES): 10 - Related Data Allergies Allergy/AdvReac Type Severity Reaction Status Date / Time No Known Allergies Allergy Verified 10/31/17 09:43 Home Meds: Home Meds Hydrochlorothiazide/Valsartan [Diovan HCTZ 80-12.5 MG] 1 tab PO DAILY 02/11/14 [ History] Metoprolol Succinate [Toprol XL 100mg] 100 mg PO BID 02/11/14 [History] Multivitamin [Multivitamins] 1 each PO DAILY 02/11/14 [History] [place]-3/DHA/Epa/Fish Oil [Fish Oil Dr 500 mg Softgel] 1 tab PO DAILY 02/11/14 [ History] atorvaSTATin [Lipitor] 10 mg PO BEDTIME 02/11/14 [History] Aspirin [Nilam Chewable Aspirin] 81 mg PO DAILY 09/08/14 [History] Tamsulosin HCl [Flomax] 0.4 mg PO DAILY 10/12/14 [History] Past Medical History - Past Health History Medical/Surgical History: Denies Medical/Surgical History HEENT History: Reports: None Cardiovascular History: Reports: Bypass, CAD, High Cholesterol, Hypertension Respiratory History: Reports: Bronchitis, Recurrent, Pneumonia, Recurrent Other Respiratory History: bronchitis Gastrointestinal History: Reports: None Genitourinary History: Reports: BPH Musculoskeletal History: Reports: None Neurological History: Reports: None Psychiatric History: Reports: None Endocrine/Metabolic History: Reports: Obesity/BMI 30+ Hematologic History: Reports: None Immunologic History: Reports: None Other Oncologic History: stated possible melanoma Dermatologic History: Reports: None - Infectious Disease History Infectious Disease History: Reports: None - Past Surgical History Head Surgeries/Procedures: Reports: None HEENT Surgical History: Reports: None Cardiovascular Surgical History: Reports: Coronary Artery Bypass GI Surgical History: Reports: None Musculoskeletal Surgical History: Reports: None Social & Family History - Family History Family Medical History: Noncontributory Cardiac: Reports: CAD, High Cholesterol, Hypertension, [place] Endocrine/Metabolic: Reports: Diabetes, Type I, Diabetes, type II, Obesity/MBI 30+ - Tobacco Use Smoking Status *Q: Former Smoker Years of Tobacco use: 20 Packs/Tins Daily: 1 Used Tobacco, but Quit: Yes Month/Year Tobacco Last Used: 15 years ago Second Hand Smoke Exposure: Yes - Caffeine Use Caffeine Use: Reports: Coffee (2-3 cups daily) - Alcohol Use Days Per Week of Alcohol Use: 3 Number of Drinks Per Day: 1 Total Drinks Per Week: 3 - Recreational Drug Use Recreational Drug Use: No Drug Use in Last 12 Months: No - Living Situation & Occupation Occupation: Employed ED ROS GENERAL - Review of Systems Review Of Systems: ROS reveals no pertinent complaints other than HPI. ED EXAM, GENERAL - Physical Exam Exam: See Below (See dictation) Course - Vital Signs Text/Narrative:: Patient chest x-ray was remarkable for atelectasis versus infiltrate at the left base and several right-sided rib fractures. Labs were unremarkable I discussed this with patient request discharge Shey given hydrocodone be taken as prescribed Levaquin and follow-up with his private medical doctor and oncologist as discussed Last Recorded V/S: Last Vital Signs Temp 36.4 C 10/31/17 09:41 Pulse 62 10/31/17 09:41 Resp 18 10/31/17 09:41 BP 162/77 H 10/31/17 09:41 Pulse Ox 97 10/31/17 09:41 - Orders/Labs/Meds Labs: Laboratory Tests 10/31/17 10/31/17 Range/Units 10:11 10:11 WBC 4.66 (4.0-11.0) K/uL RBC 3.39 L (4.50-5.90) M/uL Hgb 10.5 L (13.0-17.0) g/dL Hct 30.7 L (38.0-50.0) % MCV 90.6 (80.0-98.0) fL MCH 31.0 (27.0-32.0) pg MCHC 34.2 (31.0-37.0) g/dL RDW Std Deviation 51.9 (28.0-62.0) fl RDW Coeff of Isela 16 H (11.0-15.0) % Plt Count 171 (150-400) K/uL MPV 8.80 (7.40-12.00) fL Neut % (Auto) 67.6 (48.0-80.0) % Lymph % (Auto) 21.9 (16.0-40.0) % [place] % (Auto) 5.8 (0.0-15.0) % Eos % (Auto) 4.5 (0.0-7.0) % Baso % (Auto) 0.2 (0.0-1.5) % Neut # (Auto) 3.2 (1.4-5.7) K/uL Lymph # (Auto) 1.0 (0.6-2.4) K/uL [place] # (Auto) 0.3 (0.0-0.8) K/uL Eos # (Auto) 0.2 (0.0-0.7) K/uL Baso # (Auto) 0.0 (0.0-0.1) K/uL Nucleated RBC % 0.0 /100WBC Nucleated RBCs # 0 K/uL Sodium 135 L (136-148) mmol/L Potassium 4.0 (3.5-5.1) mmol/L Chloride 102 (98-107) mmol/L Carbon Dioxide 23.3 (21.0-32.0) mmol/L BUN 10 (7.0-18.0) mg/dL Creatinine 0.8 (0.8-1.3) mg/dL Est Cr Clr Drug Dosing 97.59 mL/min Estimated GFR (MDRD) > 60.0 ml/min Glucose 110 H (74-106) mg/dL Calcium 9.1 (8.5-10.1) mg/dL Total Bilirubin 0.4 (0.2-1.0) mg/dL AST 19 (15-37) IU/L ALT 25 (14-63) IU/L Alkaline Phosphatase 62 (46-116) U/L Total Protein 9.9 H (6.4-8.2) g/dL Albumin 2.4 L (3.4-5.0) g/dL Globulin 7.5 H (2.0-3.5) g/dL Albumin/Globulin Ratio 0.3 L (1.3-2.8) Departure - Departure Time of Disposition: 09:50 Disposition: Home, Self-Care 01 Condition: Good Clinical Impression: Fracture, ribs - Discharge Information Forms: ED Department Discharge
--- NOTE | 2017-10-31 10:16 | CR ---
EXAMINATION: Two-view chest (PA and Lateral views). HISTORY: Shortness of breath. FINDINGS: The trachea is midline. The cardiomediastinal silhouette is within normal limits. No effusions or pne umothorax. Median sternotomy wires are noted. Trace left basilar atelectasis. Several lucencies are noted within the clavicles and scapula consistent with history of multiple myel shani. Several right-sided rib fractures are noted. IMPRESSION: 1. Trace left basilar atelectasis and/or infiltrate. 2. Multiple lucencies noted consistent with history of multiple myeloma.
--- NOTE | 2017-10-31 10:18 | CR ---
EXAMINATION: Right RIBS HISTORY: Pain COMPARISON: Bone survey dated 10/19/2017 TECHNIQUE: 2 views FINDINGS: There are a few minimally displaced right-sided rib fractures involving the eighth ninth, a nd 10th ribs posteriorly. Multiple lucencies noted within the axial and appendicular skeleton. Median sternotomy wires are noted. Otherwise bone mineralization appears osteopenic. IMPRESSION: 1. A few nondisplaced right-sided rib fractures without evidence of pneumothorax. 2. Multiple lucencies noted consistent with multiple myeloma.
[2017-10-31 11:11] LABS: CHLORIDE,CL 102 mmol/L (98-107); SODIUM,NA 135 mmol/L (136-148)
[2017-10-31 12:23] VITALS: BP 136/75
== END 2017-10-31 12:21 | disposition home or self-care (01) ==
LOC: MW.ED 09:30
DX: S22.31XA Fracture of one rib, right side, initial encounter for closed fracture (principal); E78.00 Pure hypercholesterolemia, unspecified; I10 Essential (primary) hypertension; Z79.82 Long term (current) use of aspirin; Z79.899 Other long term (current) drug therapy; Z87.891 Personal history of nicotine dependence; Z85.79 Personal history of other malignant neoplasms of lymphoid, hematopoietic and related tissues; Z87.09 Personal history of other diseases of the respiratory system; X58.XXXA Exposure to other specified factors, initial encounter
CPT/HCPCS: 36415; 71046; 71046-26; 71100-26-RT; 71100-RT; 80053; 85025; 99283

== ENCOUNTER 2017-12-25 14:44 | Emergency (ER) | payer OTHER ==
--- NOTE | 2017-12-25 15:33 | EDM.PDOC ---
ED HPI GENERAL MEDICAL PROBLEM - General Chief Complaint: Skin Complaint Stated Complaint: RASH ALL OVER PT'S BODY Time Seen by Provider: 12/25/17 15:19 Source of Information: Reports: Patient History Limitations: Reports: No Limitations - History of Present Illness INITIAL COMMENTS - FREE TEXT/NARRATIVE: Presents reporting a progressive rash that started last week. He took some Benadryl without improvement. He has multiple myeloma and was on his first course of Revlimid which was interrupted with the development of rash about 10 days ago. No fever, mouth or facial swelling, breathing problems or wheezing. Generalized Pain Score (Numeric/FACES): 5 - Related Data Allergies Allergy/AdvReac Type Severity Reaction Status Date / Time No Known Allergies Allergy Verified 12/25/17 15:04 Home Meds: Home Meds Hydrochlorothiazide/Valsartan [Diovan HCTZ 80-12.5 MG] 1 tab PO DAILY 02/11/14 [ History] Metoprolol Succinate [Toprol XL 100mg] 100 mg PO BID 02/11/14 [History] Multivitamin [Multivitamins] 1 each PO DAILY 02/11/14 [History] Pearblossom-3/DHA/Epa/Fish Oil [Fish Oil Dr 500 mg Softgel] 1 tab PO DAILY 02/11/14 [ History] atorvaSTATin [Lipitor] 10 mg PO BEDTIME 02/11/14 [History] Aspirin [Nilam Chewable Aspirin] 81 mg PO DAILY 09/08/14 [History] Tamsulosin HCl [Flomax] 0.4 mg PO DAILY 10/12/14 [History] Famotidine 20 mg PO DAILY 6 Days #6 tablet 12/25/17 [Rx] diphenhydrAMINE [Benadryl] 50 mg PO TID #18 cap 12/25/17 [Rx] predniSONE [Prednisone] 20 mg PO ASDIRECTED 5 Days #14 tablet 12/25/17 [Rx] Past Medical History - Past Health History Medical/Surgical History: Denies Medical/Surgical History HEENT History: Reports: None Cardiovascular History: Reports: Bypass, CAD, High Cholesterol, Hypertension Respiratory History: Reports: Bronchitis, Recurrent, Pneumonia, Recurrent Other Respiratory History: bronchitis Gastrointestinal History: Reports: None Genitourinary History: Reports: BPH Musculoskeletal History: Reports: None Neurological History: Reports: None Psychiatric History: Reports: None Endocrine/Metabolic History: Reports: Obesity/BMI 30+ Hematologic History: Reports: None Immunologic History: Reports: None Other Oncologic History: multiple myeloma Dermatologic History: Reports: None - Infectious Disease History Infectious Disease History: Reports: Mumps - Past Surgical History Head Surgeries/Procedures: Reports: None HEENT Surgical History: Reports: None Cardiovascular Surgical History: Reports: Coronary Artery Bypass GI Surgical History: Reports: None Musculoskeletal Surgical History: Reports: None Social & Family History - Family History Family Medical History: Noncontributory Cardiac: Reports: CAD, High Cholesterol, Hypertension, [place] Endocrine/Metabolic: Reports: Diabetes, Type I, Diabetes, type II, Obesity/MBI 30+ - Tobacco Use Smoking Status *Q: Former Smoker Used Tobacco, but Quit: Yes Month/Year Tobacco Last Used: 1991 - Caffeine Use Caffeine Use: Reports: Coffee - Recreational Drug Use Recreational Drug Use: No - Living Situation & Occupation Occupation: Employed ED ROS GENERAL - Review of Systems Review Of Systems: ROS reveals no pertinent complaints other than HPI. ED EXAM, SKIN/RASH Exam: See Below Exam Limited By: No Limitations General Appearance: Alert, No Apparent Distress Ears: Normal External Exam Nose: Normal Inspection Throat/Mouth: Normal Inspection, Normal Lips, Normal Oropharynx Head: Atraumatic, Normocephalic Neck: Normal Inspection Respiratory/Chest: No Respiratory Distress, Lungs Clear, Normal Breath Sounds Cardiovascular: Normal Peripheral Pulses, Regular Rate, Rhythm, No Murmur GI/Abdominal: Soft Back Exam: Normal Inspection Extremities: Normal Inspection Neurological: Alert, Oriented, Normal Cognition Psychiatric: Normal Affect, Normal Mood Skin: Warm, Dry, Intact, Normal Color, Other (Dark pink diffuse macular rash from neck down including extremities abdomen chest and back) Course - Vital Signs Last Recorded V/S: Last Vital Signs Temp 36.3 C 12/25/17 15:00 Pulse 92 12/25/17 15:00 Resp 18 12/25/17 15:00 BP 128/82 12/25/17 15:00 Pulse Ox 96 12/25/17 15:00 Departure - Departure Time of Disposition: 15:38 Disposition: Home, Self-Care 01 Condition: Good Clinical Impression: Drug rash - Discharge Information Referrals: PCP,None [Primary Care Provider] - [facility] [Outside] [facility] [Outside] Additional Instructions: 1. Take your prednisone as directed 2. Benadryl 3 or 4 times a day 3. Famotidine once a day 4. Follow-up with oncology or primary care provider 5. Return promptly for wheezing, breathing problems, facial or mouth swelling
[2017-12-25 18:12] VITALS: BP 98/65
== END 2017-12-25 15:52 | disposition home or self-care (01) ==
LOC: MW.ED 14:44
DX: L27.0 Generalized skin eruption due to drugs and medicaments taken internally (principal); T45.1X5A Adverse effect of antineoplastic and immunosuppressive drugs, initial encounter; Z79.899 Other long term (current) drug therapy; Z79.82 Long term (current) use of aspirin; I10 Essential (primary) hypertension; E78.00 Pure hypercholesterolemia, unspecified; E66.9 Obesity, unspecified; Z87.891 Personal history of nicotine dependence
CPT/HCPCS: 99282; 99283

== ENCOUNTER 2018-02-11 16:06 | Emergency (ER) | payer OTHER ==
[2018-02-11] MEDS ORDERED: Sodium Chloride 0.9% 1,000 ML IV ONE (16:28)
[2018-02-11] MEDS ORDERED: Albuterol/Ipratropium 3.0-0.5 MG/3 ML Neb Soln NEB ONE (16:28)
[2018-02-11] MEDS ORDERED: Sodium Chloride 0.9% 2.5 ML Syringe FLUSH PRN (16:28)
[2018-02-11] MEDS ORDERED: Sodium Chloride 0.9% 10 ML Syringe FLUSH PRN (16:28)
[2018-02-11] MEDS ORDERED: Acetaminophen 500 MG Tab PO ONE (16:32)
--- NOTE | 2018-02-11 16:32 | EDM.PDOC ---
ED HPI GENERAL MEDICAL PROBLEM - General Chief Complaint: Respiratory Problem Stated Complaint: SOB Time Seen by Provider: 02/11/18 16:18 - History of Present Illness INITIAL COMMENTS - FREE TEXT/NARRATIVE: HISTORY AND PHYSICAL: History of present illness: The patient is a 63-year-old male with a history of multiple myeloma for which he gets chemotherapy shots twice a week and also has a history of coronary artery disease hypertension and BPH and presents with complaints of several days of subjective fevers dry cough occasionally productive of phlegm and feeling rundown and tired. The patient had blood work done earlier today which is a routine weekly lab draw and I've reviewed that CBC and CMP. The patient says he has had no abdominal pain no vomiting no diarrhea and no urinary complaints and no sore throat. He has never runny nose or sinus congestion and has diffuse body aches but no specific area of discomfort. He says that he gets bronchitis off and when that happens he progresses to pneumonia and he is concerned about that. He has a significant past medical history of smoking but is currently not smoking. Currently in the ED he has a dry hacking cough. He says he has not had much to eat because he doesn't feel well enough to eat although he has had no abdominal pain or nausea. The patient last took any antipyretics earlier this morning Review of systems: As per history of present illness and below otherwise all systems reviewed and negative. Past medical history: As per history of present illness and as reviewed below otherwise noncontributory. Surgical history: As per history of present illness and as reviewed below otherwise noncontributory. Social history: No reported history of drug or alcohol abuse. Family history: As per history of present illness and as reviewed below otherwise noncontributory. Physical exam: General: Well-developed well-nourished man who is nontoxic and has a dry cough on my evaluation. Vital signs are noted by me. HEENT: Atraumatic, normocephalic, negative for conjunctival pallor or scleral icterus, mucous membranes moist, throat clear, neck supple, nontender, trachea midline. There is no cervical adenopathy or nuchal rigidity Lungs: Clear to auscultation with coarse breath sounds scattered bilaterally and some rhonchi but no discrete wheezing stridor or work of breathing, breath sounds equal bilaterally, chest nontender. Heart: S1S2, regular rate and rhythm and no overt murmur but there is a loud systolic click at the left sternal border Abdomen: Soft, nondistended, nontender. Negative for masses or hepatosplenomegaly. Negative for costovertebral tenderness. Pelvis: Stable nontender. Genitourinary: Deferred. Rectal: Deferred. Extremities: Atraumatic, negative for cords or calf pain. Neurovascular unremarkable. Neuro: Awake, alert, oriented. Cranial nerves II through XII unremarkable. Cerebellum unremarkable. Motor and sensory unremarkable throughout. Exam nonfocal. Diagnostics: Patient had a CBC and CMP done in the clinic Lactic acid blood cultures times 2 repeat CBC UA urine culture chest x-ray CBC earlier in the clinic had a white count of 3.68 a hemoglobin of 11.8 with platelets of 132 and a normal electrolyte panel and liver function tests Therapeutics: IV and IV fluids Tylenol DuoNeb Solu-Medrol Levaquin After the DuoNeb the patient is moving air much better but still has a lot of scattered rhonchi but no wheezing. His O2 sats on room air are currently 93-94% and his cough is diminished. I discussed with him all testing results and have offered him admission for further care, him knowing that we currently have no beds available at our hospital and that would require a transfer. The patient does not want to be admitted and does want to go home. I will give him albuterol with a spacer Levaquin IV here nothing by mouth for home and prednisone and encourage close follow-up with his provider in the clinic and reasons to return to the ED I also discussed the x-ray findings of the indeterminate compression fracture of the thoracic vertebrae and the old rib fracture the patient states understanding Impression: Acute bronchitis with mild hypoxia improving; history of multiple myeloma Definitive disposition and diagnosis as appropriate pending reevaluation and review of above. back Pain Score (Numeric/FACES): 7 - Related Data Allergies Allergy/AdvReac Type Severity Reaction Status Date / Time No Known Allergies Allergy Verified 02/11/18 16:17 Home Meds: Home Meds Hydrochlorothiazide/Valsartan [Diovan HCTZ 80-12.5 MG] 1 tab PO DAILY 02/11/14 [ History] Metoprolol Succinate [Toprol XL 100mg] 100 mg PO BID 02/11/14 [History] Multivitamin [Multivitamins] 1 each PO DAILY 02/11/14 [History] Bandy-3/DHA/Epa/Fish Oil [Fish Oil Dr 500 mg Softgel] 1,000 mg PO DAILY [History] atorvaSTATin [Lipitor] 40 mg PO BEDTIME 02/11/14 [History] Aspirin [Nilam Chewable Aspirin] 81 mg PO DAILY 09/08/14 [History] Tamsulosin HCl [Flomax] 0.4 mg PO QPM 10/12/14 [History] Albuterol [Ventolin HFA] 1 puff INH Q4H PRN 02/11/18 [History] Baclofen 10 mg PO TID PRN 02/11/18 [History] Diclofenac Sodium [Voltaren] 4 gm TP QID PRN 02/11/18 [History] Diltiazem HCl [Diltiazem 24Hr ER] 120 mg PO DAILY 02/11/18 [History] Hydrocodone/Acetaminophen [Hydrocodon-Acetaminoph 7.5-325] 1 each PO Q6H PRN 09/30 [History] Past Medical History - Past Health History Medical/Surgical History: Denies Medical/Surgical History HEENT History: Reports: None Cardiovascular History: Reports: Bypass, CAD, High Cholesterol, Hypertension Respiratory History: Reports: Bronchitis, Recurrent, Pneumonia, Recurrent Other Respiratory History: bronchitis Gastrointestinal History: Reports: None Genitourinary History: Reports: BPH Musculoskeletal History: Reports: None Neurological History: Reports: None Psychiatric History: Reports: None Endocrine/Metabolic History: Reports: Obesity/BMI 30+ Hematologic History: Reports: None Immunologic History: Reports: None Oncologic (Cancer) History: Reports: Other (See Below) Other Oncologic History: multiple myeloma Dermatologic History: Reports: None - Infectious Disease History Infectious Disease History: Reports: Chicken Pox - Past Surgical History Head Surgeries/Procedures: Reports: None HEENT Surgical History: Reports: None Cardiovascular Surgical History: Reports: Coronary Artery Bypass GI Surgical History: Reports: None Musculoskeletal Surgical History: Reports: None Social & Family History - Family History Family Medical History: Noncontributory Cardiac: Reports: CAD, High Cholesterol, Hypertension, [place] Endocrine/Metabolic: Reports: Diabetes, Type I, Diabetes, type II, Obesity/MBI 30+ - Tobacco Use Smoking Status *Q: Former Smoker Used Tobacco, but Quit: Yes Month/Year Tobacco Last Used: 20 years ago - Caffeine Use Caffeine Use: Reports: Coffee - Recreational Drug Use Recreational Drug Use: No - Living Situation & Occupation Occupation: Employed ED ROS GENERAL - Review of Systems Review Of Systems: ROS reveals no pertinent complaints other than HPI. ED EXAM, GENERAL - Physical Exam Exam: See Below (See dictation) Course - Vital Signs Last Recorded V/S: Last Vital Signs Temp 36.8 C 02/11/18 16:41 Pulse 92 02/11/18 17:29 Resp 15 02/11/18 17:29 BP 139/67 02/11/18 17:29 Pulse Ox 95 02/11/18 17:29 - Orders/Labs/Meds Orders: Active Orders 24 hr Category Date Time Status Communication Order [RC] STAT Care 02/11/18 18:04 Ordered RT Aerosol Therapy [RC] ASDIRECTED Care 02/11/18 16:28 Active Chest 2V [CR] Stat Exams 02/11/18 16:28 Taken CULTURE BLOOD [BC] Stat Lab 02/11/18 16:37 Received CULTURE BLOOD [BC] Stat Lab 02/11/18 16:50 Received CULTURE URINE [RM] Stat Lab 02/11/18 17:43 Ordered UA W/MICROSCOPIC [URIN] Stat Lab 02/11/18 17:43 Ordered Levofloxacin/Dextrose 5%-Water [Levaquin in D5W 750 MG/ Med 02/11/18 18:04 Ordered 150 ML] 750 mg Premix Bag 1 bag IV ONETIME Sodium Chloride 0.9% [Saline Flush] Med 02/11/18 16:28 Active 10 ml FLUSH ASDIRECTED PRN Sodium Chloride 0.9% [Saline Flush] Med 02/11/18 16:28 Active 2.5 ml FLUSH ASDIRECTED PRN Blood Culture x2 Reflex Set [OM.PC] Stat Oth 02/11/18 16:28 Ordered Saline Lock Insert [OM.PC] Stat Oth 02/11/18 16:28 Ordered Medication Orders Levofloxacin/Dextrose 750 mg/ (Premix) 150 mls @ 100 mls/hr IV ONETIME ONE Stop: 02/11/18 19:33 Sodium Chloride (Saline Flush) 10 ml FLUSH ASDIRECTED PRN PRN Reason: Keep Vein Open Last Admin: 02/11/18 16:36 Dose: 10 ml Sodium Chloride (Saline Flush) 2.5 ml FLUSH ASDIRECTED PRN PRN Reason: Keep Vein Open Last Admin: 02/11/18 16:35 Dose: 2.5 ml Labs: Laboratory Tests 02/11/18 02/11/18 02/11/18 Range/Units 16:37 16:37 17:43 WBC 6.32 (4.0-11.0) K/uL RBC 3.86 L (4.50-5.90) M/uL Hgb 11.6 L (13.0-17.0) g/dL Hct 34.2 L (38.0-50.0) % MCV 88.6 (80.0-98.0) fL MCH 30.1 (27.0-32.0) pg MCHC 33.9 (31.0-37.0) g/dL RDW Std Deviation 51.2 (28.0-62.0) fl RDW Coeff of Isela 16 H (11.0-15.0) % Plt Count 146 L (150-400) K/uL MPV 9.90 (7.40-12.00) fL Neut % (Auto) 87.6 H (48.0-80.0) % Lymph % (Auto) 6.0 L (16.0-40.0) % [place] % (Auto) 5.7 (0.0-15.0) % Eos % (Auto) 0.5 (0.0-7.0) % Baso % (Auto) 0.2 (0.0-1.5) % Neut # (Auto) 5.5 (1.4-5.7) K/uL Lymph # (Auto) 0.4 L (0.6-2.4) K/uL [place] # (Auto) 0.4 (0.0-0.8) K/uL Eos # (Auto) 0.0 (0.0-0.7) K/uL Baso # (Auto) 0.0 (0.0-0.1) K/uL Nucleated RBC % 0.0 /100WBC Nucleated RBCs # 0 K/uL Lactate 1.2 (0.20-2.00) mmol/L Urine Color YELLOW Urine Appearance CLEAR Urine pH 8.5 H (5.0-8.0) Ur Specific [place] 1.015 (1.001-1.035) Urine Protein 30 (NEGATIVE) mg/dL Urine Glucose (UA) NEGATIVE (NEGATIVE) mg/dL Urine Ketones 15 H (NEGATIVE) mg/dL Urine Occult Blood NEGATIVE (NEGATIVE) Urine Nitrite NEGATIVE (NEGATIVE) Urine Bilirubin NEGATIVE (NEGATIVE) Urine Urobilinogen 1.0 (<2.0) EU/dL Ur Leukocyte Esterase NEGATIVE (NEGATIVE) Urine RBC 0-2 (0-2/HPF) Urine WBC 1-2 (0-5/HPF) Ur Epithelial Cells RARE (NONE-FEW) Urine Bacteria FEW (NEGATIVE) Urine Mucus LIGHT (NONE-MOD) Meds: Medications Generic Name Dose Route Start Last Admin Trade Name Freq PRN Reason Stop Dose Admin Levofloxacin/Dextrose 750 mg/ 150 mls @ 100 mls/hr 02/11/18 18:04 Premix IV 02/11/18 19:33 ONETIME ONE Sodium Chloride 10 ml 02/11/18 16:28 02/11/18 16:36 Saline Flush FLUSH 10 ml ASDIRECTED PRN Administration Keep Vein Open Sodium Chloride 2.5 ml 02/11/18 16:28 02/11/18 16:35 Saline Flush FLUSH 2.5 ml ASDIRECTED PRN Administration Keep Vein Open Discontinued Medications Generic Name Dose Route Start Last Admin Trade Name Freq PRN Reason Stop Dose Admin Acetaminophen 1,000 mg 02/11/18 16:32 02/11/18 16:41 Tylenol Extra Strength PO 02/11/18 16:33 1,000 mg ONETIME ONE Administration Albuterol/Ipratropium 3 ml 02/11/18 16:28 02/11/18 16:36 Duoneb 3.0-0.5 Mg/3 Ml NEB 02/11/18 16:29 3 ml ONETIME ONE Administration Sodium Chloride 1,000 mls @ 999 mls/hr 02/11/18 16:28 02/11/18 16:35 Normal Saline IV 02/11/18 17:28 999 mls/hr STAT ONE Administration Methylprednisolone Sodium Succinate 125 mg 02/11/18 16:34 02/11/18 16:40 Solu-Medrol IVPUSH 02/11/18 16:35 125 mg ONETIME ONE Administration Departure - Departure Time of Disposition: 18:09 Disposition: Home, Self-Care 01 Condition: Good Clinical Impression: Acute bronchitis Qualifiers: Bronchitis organism: unspecified organism Qualified Code(s): J20.9 - Acute bronchitis, unspecified - Discharge Information Referrals: Rich Cruz MD [Primary Care Provider] - Forms: ED Department Discharge Additional Instructions: The following information is given to patients seen in the emergency department who are being discharged to home. This information is to outline your options for follow-up care. We provide all patients seen in our emergency department with a follow-up referral. The need for follow-up, as well as the timing and circumstances, are variable depending upon the specifics of your emergency department visit. If you don't have a primary care physician on staff, we will provide you with a referral. We always advise you to contact your personal physician following an emergency department visit to inform them of the circumstance of the visit and for follow-up with them and/or the need for any referrals to a consulting specialist. The emergency department will also refer you to a specialist when appropriate. This referral assures that you have the opportunity for followup care with a specialist. All of these measure are taken in an effort to provide you with optimal care, which includes your followup. Under all circumstances we always encourage you to contact your private physician who remains a resource for coordinating your care. When calling for followup care, please make the office aware that this follow-up is from your recent emergency room visit. If for any reason you are refused follow-up, please contact the [facility] emergency department at and ask to speak to the emergency department charge nurse. [facility] Primary care- Internal [place] [address] Please use all medications as prescribed and push hydration and rest. Please call and schedule a follow-up appointment with your provider in the next 24-48 hours and return to ER as needed and as discussed. - My Orders Last 24 Hours: My Active Orders 02/11/18 16:28 RT Aerosol Therapy [RC] ASDIRECTED Chest 2V [CR] Stat Sodium Chloride 0.9% [Saline Flush] 10 ml FLUSH ASDIRECTED PRN Sodium Chloride 0.9% [Saline Flush] 2.5 ml FLUSH ASDIRECTED PRN Blood Culture x2 Reflex Set [OM.PC] Stat Saline Lock Insert [OM.PC] Stat 02/11/18 16:37 CULTURE BLOOD [BC] Stat 02/11/18 16:50 CULTURE BLOOD [BC] Stat 02/11/18 17:43 CULTURE URINE [RM] Stat UA W/MICROSCOPIC [URIN] Stat 02/11/18 18:04 Communication Order [RC] STAT Levofloxacin/Dextrose 5%-Water [Levaquin in D5W 750 MG/150 ML] 750 mg Premix Bag 1 bag IV ONETIME - Assessment/Plan Last 24 Hours: My Active Orders 02/11/18 16:28 RT Aerosol Therapy [RC] ASDIRECTED Chest 2V [CR] Stat Sodium Chloride 0.9% [Saline Flush] 10 ml FLUSH ASDIRECTED PRN Sodium Chloride 0.9% [Saline Flush] 2.5 ml FLUSH ASDIRECTED PRN Blood Culture x2 Reflex Set [OM.PC] Stat Saline Lock Insert [OM.PC] Stat 02/11/18 16:37 CULTURE BLOOD [BC] Stat 02/11/18 16:50 CULTURE BLOOD [BC] Stat 02/11/18 17:43 CULTURE URINE [RM] Stat UA W/MICROSCOPIC [URIN] Stat 02/11/18 18:04 Communication Order [RC] STAT Levofloxacin/Dextrose 5%-Water [Levaquin in D5W 750 MG/150 ML] 750 mg Premix Bag 1 bag IV ONETIME
[2018-02-11] MEDS ORDERED: methylPREDNISolone Sodium Succinate 125 MG/2 ML SDV IVPUSH ONE (16:34)
[2018-02-11] MEDS ORDERED: Levofloxacin/Dextrose 5%-Water 750 MG in Premix Bag 1 BAG IV ONE (18:04)
[2018-02-11 19:48] VITALS: BP 132/78
--- NOTE | 2018-02-12 08:57 | CR ---
EXAM DATE: 02/11/18 PATIENT'S AGE: 63 Patient: TONY MOORE Facility: [place], [place] Site . Site : [id number] Study: XRay Chest [id number] 5:12:50 PM Ordering Physician: Lonnie Coto Final Report: INDICATION: cough TECHNIQUE: Chest 2 views COMPARISON: October 31, 2017 FINDINGS: Cardiovascular and mediastinum: Stable cardiac silhouette. Sternotomy changes. Mediastinum is within normal limits. Lungs and pleural spaces: No focal consolidation. Scarring/hyperinflation. No sign of pleural effusion. No pneumothorax. Bones and soft tissues: Innumerable lucent bone lesions throughout the imaged osseous skeleton likely related to patient`s history of multiple myeloma. Healed 8th posterolateral right rib fracture. New age-indeterminate compression deformity of a mid thoracic vertebral body. IMPRESSION: 1. No acute cardiopulmonary disease. 2. New age-indeterminate compression deformity of a mid thoracic vertebral body. Recommend comparison with any more recent prior imaging of this region to evaluate for stability/chronicity, point tenderness, and clinical presentation. Dictated by Pelon Vines MD @ 02/11/2018 5:47:54 PM Dictated by: Pelon Vines MD @ 02/11/2018 17:47:59 (Electronic Signature) Report Signed by Proxy. [facility]
== END 2018-02-11 19:49 | disposition home or self-care (01) ==
LOC: MW.ED 16:06
DX: J20.9 Acute bronchitis, unspecified (principal); I25.810 Atherosclerosis of coronary artery bypass graft(s) without angina pectoris; I10 Essential (primary) hypertension; Z87.01 Personal history of pneumonia (recurrent); Z79.82 Long term (current) use of aspirin; Z95.1 Presence of aortocoronary bypass graft; Z79.899 Other long term (current) drug therapy; Z87.891 Personal history of nicotine dependence
CPT/HCPCS: 36415; 71046; 81001; 83605; 85025; 87040; 87086; 94640; 96361; 96365; 96366; 96375; 99284; A9270; J1956; J2930; J7040

== ENCOUNTER 2018-10-14 11:21 | Emergency (ER) | payer BC ==
[2018-10-14] MEDS ORDERED: Sodium Chloride 0.9% 10 ML Syringe FLUSH PRN (11:58)
[2018-10-14] MEDS ORDERED: Albuterol/Ipratropium 3.0-0.5 MG/3 ML Neb Soln NEB ONE (11:58)
[2018-10-14] MEDS ORDERED: Sodium Chloride 0.9% 2.5 ML Syringe FLUSH PRN (11:58)
[2018-10-14] MEDS ORDERED: Sodium Chloride 0.9% 500 ML IV SCH (12:00)
--- NOTE | 2018-10-14 12:04 | EDM.PDOC ---
ED HPI GENERAL MEDICAL PROBLEM - General Chief Complaint: Respiratory Problem Stated Complaint: COUGH Time Seen by Provider: 10/14/18 11:28 - History of Present Illness INITIAL COMMENTS - FREE TEXT/NARRATIVE: HISTORY AND PHYSICAL: History of present illness: The patient is a 63-year-old male with a history of coronary artery disease with CABG hypertension hypercholesterolemia and irregular heart rate and recently diagnosed multiple myeloma for which she is receiving chemotherapy with our oncology clinic and who presents today with cough productive of green phlegm bodyaches and concerns about bronchitis that started on Sunday, 2-1/2 days ago. He says he had similar symptoms last year and I took care of him and he is concerned about a recurrence. He was scheduled to go to the oncology clinic today and get a shot of his medications but that was canceled due to his symptoms. He says he's been eating and drinking normally without abdominal pain vomiting or diarrhea and he has had no fevers with this. He has a slight sore throat but no runny nose. He says he to get his influenza shot this year. He does not have any pulmonary history that he is aware of any is not a smoker. He says he does not have an inhaler from last time he had bronchitis to utilize. The patient says he is not short of breath with this coughing and with the phlegm production and he is eating and drinking normally. The patient does not have a port. He says that his multiple myeloma is in the bones and not in his lungs or lymph nodes. Review of systems: As per history of present illness and below otherwise all systems reviewed and negative. Past medical history: As per history of present illness and as reviewed below otherwise noncontributory. Surgical history: As per history of present illness and as reviewed below otherwise noncontributory. Social history: No reported history of drug or alcohol abuse. Family history: As per history of present illness and as reviewed below otherwise noncontributory. Physical exam: General: Well-developed well-nourished man who is speaking clearly and easily in the ED without breathlessness or hoarse voice. Vital signs are noted by me HEENT: Atraumatic, normocephalic, pupils reactive, negative for conjunctival pallor or scleral icterus, mucous membranes moist, throat clear, neck supple, nontender, trachea midline. No cervical adenopathy or nuchal rigidity Lungs: Clear to auscultation with occasional rhonchi but no wheezing rales or stridor and no work of breathing, breath sounds equal bilaterally, chest nontender. Heart: S1S2, regular rate and rhythm no overt murmurs Abdomen: Soft, nondistended, nontender. NABS Pelvis: Deferred Genitourinary: Deferred. Rectal: Deferred. Extremities: Atraumatic, negative for cords or calf pain. Neurovascular unremarkable. Neuro: Awake, alert, oriented. Cranial nerves II through XII unremarkable. Cerebellum unremarkable. Motor and sensory unremarkable throughout. Exam nonfocal. Diagnostics: Chest x-ray CBC CMP lactic acid blood cultures Therapeutics: IV fluids duo neb, spacer I told the patient that we would need to do a workup in light of his history of chemotherapy and multiple myeloma. He tells me he does not have a port in place. He is agreeable to the workup and the care plan He is aware of all testing results and need for care plan at home including albuterol short burst of prednisone and Zithromax and Tessalon Perles for the cough. Advised him to push hydration and to follow-up with his cancer doctor per their protocol and discuss this care plan with them as well was it does not conflict with his therapy for his multiple myeloma. I've advised him on reasons to return to the ED Impression: Keep bronchitis with history of multiple myeloma on treatment Definitive disposition and diagnosis as appropriate pending reevaluation and review of above. - Related Data Allergies Allergy/AdvReac Type Severity Reaction Status Date / Time No Known Allergies Allergy Verified 10/14/18 11:33 Home Meds: Home Meds Hydrochlorothiazide/Valsartan [Diovan HCTZ 80-12.5 MG] 1 tab PO DAILY 02/11/14 [ History] Metoprolol Succinate [Toprol XL 100mg] 100 mg PO BID 02/11/14 [History] Multivitamin [Multivitamins] 1 each PO DAILY 02/11/14 [History] [place]-3/DHA/Epa/Fish Oil [Fish Oil Dr 500 mg Softgel] 1,000 mg PO DAILY [History] atorvaSTATin [Lipitor] 10 mg PO BEDTIME 02/11/14 [History] Albuterol [Ventolin HFA] 1 puff INH Q4H PRN 02/11/18 [History] Aspirin [Aspirin EC] 325 mg PO DAILY 10/14/18 [History] Past Medical History - Past Health History Medical/Surgical History: Denies Medical/Surgical History HEENT History: Reports: None Cardiovascular History: Reports: Bypass, CAD, High Cholesterol, Hypertension Respiratory History: Reports: Bronchitis, Recurrent, Pneumonia, Recurrent Other Respiratory History: bronchitis Gastrointestinal History: Reports: None Genitourinary History: Reports: BPH Musculoskeletal History: Reports: None Neurological History: Reports: None Psychiatric History: Reports: None Endocrine/Metabolic History: Reports: Obesity/BMI 30+ Hematologic History: Reports: None Immunologic History: Reports: None Oncologic (Cancer) History: Reports: Other (See Below) Other Oncologic History: multiple myeloma Dermatologic History: Reports: None - Infectious Disease History Infectious Disease History: Reports: Chicken Pox - Past Surgical History Head Surgeries/Procedures: Reports: None HEENT Surgical History: Reports: None Cardiovascular Surgical History: Reports: Coronary Artery Bypass GI Surgical History: Reports: None Musculoskeletal Surgical History: Reports: None Social & Family History - Family History Family Medical History: Noncontributory Cardiac: Reports: CAD, High Cholesterol, Hypertension, [place] Endocrine/Metabolic: Reports: Diabetes, Type I, Diabetes, type II, Obesity/MBI 30+ - Tobacco Use Smoking Status *Q: Former Smoker Used Tobacco, but Quit: Yes Month/Year Tobacco Last Used: 2008 - Caffeine Use Caffeine Use: Reports: Coffee - Recreational Drug Use Recreational Drug Use: No - Living Situation & Occupation Occupation: Employed ED ROS GENERAL - Review of Systems Review Of Systems: ROS reveals no pertinent complaints other than HPI. ED EXAM, GENERAL - Physical Exam Exam: See Below (see Dictation) Course - Vital Signs Last Recorded V/S: Last Vital Signs Temp 36.5 C 10/14/18 11:32 Pulse 69 10/14/18 11:32 Resp 18 10/14/18 11:32 BP 139/87 10/14/18 11:32 Pulse Ox 95 10/14/18 11:32 - Orders/Labs/Meds Orders: Active Orders 24 hr Category Date Time Status Communication Order [RC] STAT Care 10/14/18 13:11 Active RT Aerosol Therapy [RC] ASDIRECTED Care 10/14/18 11:58 Active CULTURE BLOOD [BC] Stat Lab 10/14/18 12:12 Received CULTURE BLOOD [BC] Stat Lab 10/14/18 12:24 Received Sodium Chloride 0.9% [Normal Saline] 500 ml Med 10/14/18 12:00 Active IV STAT Sodium Chloride 0.9% [Saline Flush] Med 10/14/18 11:58 Active 10 ml FLUSH ASDIRECTED PRN Sodium Chloride 0.9% [Saline Flush] Med 10/14/18 11:58 Active 2.5 ml FLUSH ASDIRECTED PRN Blood Culture x2 Reflex Set [OM.PC] Stat Oth 10/14/18 11:58 Ordered Saline Lock Insert [OM.PC] Stat Oth 10/14/18 11:58 Ordered Medication Orders Sodium Chloride (Normal Saline) 500 mls @ 999 mls/hr IV STAT MARCIAL Last Admin: 10/14/18 12:28 Dose: 999 mls/hr Sodium Chloride (Saline Flush) 10 ml FLUSH ASDIRECTED PRN PRN Reason: Keep Vein Open Sodium Chloride (Saline Flush) 2.5 ml FLUSH ASDIRECTED PRN PRN Reason: Keep Vein Open Labs: Laboratory Tests 10/14/18 10/14/18 10/14/18 Range/Units 12:12 12:12 12:12 WBC 5.84 (4.0-11.0) K/uL RBC 5.06 (4.50-5.90) M/uL Hgb 14.2 (13.0-17.0) g/dL Hct 40.9 (38.0-50.0) % MCV 80.8 (80.0-98.0) fL MCH 28.1 (27.0-32.0) pg MCHC 34.7 (31.0-37.0) g/dL RDW Std Deviation 41.2 (28.0-62.0) fl RDW Coeff of Isela 14 (11.0-15.0) % Plt Count 120 L (150-400) K/uL MPV 11.10 (7.40-12.00) fL Neut % (Auto) 81.7 H (48.0-80.0) % Lymph % (Auto) 5.8 L (16.0-40.0) % [place] % (Auto) 11.5 (0.0-15.0) % Eos % (Auto) 1.0 (0.0-7.0) % Baso % (Auto) 0.0 (0.0-1.5) % Neut # (Auto) 4.8 (1.4-5.7) K/uL Lymph # (Auto) 0.3 L (0.6-2.4) K/uL [place] # (Auto) 0.7 (0.0-0.8) K/uL Eos # (Auto) 0.1 (0.0-0.7) K/uL Baso # (Auto) 0.0 (0.0-0.1) K/uL Nucleated RBC % 0.0 /100WBC Nucleated RBCs # 0 K/uL Lactate 0.9 (0.20-2.00) mmol/L Sodium 137 (136-148) mmol/L Potassium 4.4 (3.5-5.1) mmol/L Chloride 101 (98-107) mmol/L Carbon Dioxide 26.4 (21.0-32.0) mmol/L BUN 12 (7.0-18.0) mg/dL Creatinine 0.7 L (0.8-1.3) mg/dL Est Cr Clr Drug Dosing 110.08 mL/min Estimated GFR (MDRD) > 60.0 ml/min Glucose 112 H (74-106) mg/dL Calcium 9.1 (8.5-10.1) mg/dL Total Bilirubin 0.9 (0.2-1.0) mg/dL AST 24 (15-37) IU/L ALT 27 (14-63) IU/L Alkaline Phosphatase 57 (46-116) U/L Total Protein 6.7 (6.4-8.2) g/dL Albumin 3.3 L (3.4-5.0) g/dL Globulin 3.4 (2.6-4.0) g/dL Albumin/Globulin Ratio 1.0 (0.9-1.6) Meds: Medications Generic Name Dose Route Start Last Admin Trade Name Freq PRN Reason Stop Dose Admin Sodium Chloride 500 mls @ 999 mls/hr 10/14/18 12:00 10/14/18 12:28 Normal Saline IV 999 mls/hr STAT MARCIAL Administration Sodium Chloride 10 ml 10/14/18 11:58 Saline Flush FLUSH ASDIRECTED PRN Keep Vein Open Sodium Chloride 2.5 ml 10/14/18 11:58 Saline Flush FLUSH ASDIRECTED PRN Keep Vein Open Discontinued Medications Generic Name Dose Route Start Last Admin Trade Name Freq PRN Reason Stop Dose Admin Albuterol/Ipratropium 3 ml 10/14/18 11:58 10/14/18 12:32 Duoneb 3.0-0.5 Mg/3 Ml NEB 10/14/18 11:59 3 ml ONETIME ONE Administration Departure - Departure Time of Disposition: 13:46 Disposition: Home, Self-Care 01 Condition: Good Clinical Impression: Acute bronchitis Qualifiers: Bronchitis organism: unspecified organism Qualified Code(s): J20.9 - Acute bronchitis, unspecified - Discharge Information Referrals: PCP,Unknown [Primary Care Provider] - Forms: ED Department Discharge Additional Instructions: The following information is given to patients seen in the emergency department who are being discharged to home. This information is to outline your options for follow-up care. We provide all patients seen in our emergency department with a follow-up referral. The need for follow-up, as well as the timing and circumstances, are variable depending upon the specifics of your emergency department visit. If you don't have a primary care physician on staff, we will provide you with a referral. We always advise you to contact your personal physician following an emergency department visit to inform them of the circumstance of the visit and for follow-up with them and/or the need for any referrals to a consulting specialist. The emergency department will also refer you to a specialist when appropriate. This referral assures that you have the opportunity for followup care with a specialist. All of these measure are taken in an effort to provide you with optimal care, which includes your followup. Under all circumstances we always encourage you to contact your private physician who remains a resource for coordinating your care. When calling for followup care, please make the office aware that this follow-up is from your recent emergency room visit. If for any reason you are refused follow-up, please contact the [facility] emergency department at and ask to speak to the emergency department charge nurse. [facility] Primary care- Internal Medicine and Family [address] [address] These use all medications as prescribed and use her albuterol with a spacer you have been given here. Push hydration and rest and try to avoid the very cold weather. Please continue with your follow-up and care plan in the oncology center and return to ER as needed and as discussed. Please make sure that the oncology center knows about the care plan we have started today. - My Orders Last 24 Hours: My Active Orders 10/14/18 11:58 RT Aerosol Therapy [RC] ASDIRECTED Sodium Chloride 0.9% [Saline Flush] 10 ml FLUSH ASDIRECTED PRN Sodium Chloride 0.9% [Saline Flush] 2.5 ml FLUSH ASDIRECTED PRN Blood Culture x2 Reflex Set [OM.PC] Stat Saline Lock Insert [OM.PC] Stat 10/14/18 12:00 Sodium Chloride 0.9% [Normal Saline] 500 ml IV STAT 10/14/18 12:12 CULTURE BLOOD [BC] Stat 10/14/18 12:24 CULTURE BLOOD [BC] Stat 10/14/18 13:11 Communication Order [RC] STAT - Assessment/Plan Last 24 Hours: My Active Orders 10/14/18 11:58 RT Aerosol Therapy [RC] ASDIRECTED Sodium Chloride 0.9% [Saline Flush] 10 ml FLUSH ASDIRECTED PRN Sodium Chloride 0.9% [Saline Flush] 2.5 ml FLUSH ASDIRECTED PRN Blood Culture x2 Reflex Set [OM.PC] Stat Saline Lock Insert [OM.PC] Stat 10/14/18 12:00 Sodium Chloride 0.9% [Normal Saline] 500 ml IV STAT 10/14/18 12:12 CULTURE BLOOD [BC] Stat 10/14/18 12:24 CULTURE BLOOD [BC] Stat 10/14/18 13:11 Communication Order [RC] STAT
[2018-10-14 13:03] LABS: CHLORIDE,CL 101 mmol/L (98-107); SODIUM,NA 137 mmol/L (136-148)
--- NOTE | 2018-10-14 13:32 | CR ---
Pain shortness of breath Two-view chest x-ray. COMPARISON: Chest x-ray 02/11/2018. Findings: Normal cardiac mediastinal silhouette median sternotomy. Old right posterior rib fracture. No acute airspace or interstitial process. IMPRESSION: 1. No acute pulmonary process. Dictated by Nieves Blake MD @ Oct 14 2018 1:30PM Signed by Dr. Nieves Blake @ Oct 14 2018 1:31PM
[2018-10-14 14:11] VITALS: BP 135/84
== END 2018-10-14 14:08 | disposition home or self-care (01) ==
LOC: MW.ED 11:21
DX: J20.9 Acute bronchitis, unspecified (principal); C90.00 Multiple myeloma not having achieved remission; I25.10 Atherosclerotic heart disease of native coronary artery without angina pectoris; E78.00 Pure hypercholesterolemia, unspecified; I10 Essential (primary) hypertension; Z87.891 Personal history of nicotine dependence; Z79.899 Other long term (current) drug therapy; Z95.1 Presence of aortocoronary bypass graft; Z79.82 Long term (current) use of aspirin
CPT/HCPCS: 36415; 71046; 80053; 83605; 85025; 87040; 94640; 96360; 99284; J7040; 99283; J7620-GY

== ENCOUNTER 2018-10-17 19:50 | Emergency (ER) | payer BC ==
[2018-10-17] MEDS ORDERED: Albuterol/Ipratropium 3.0-0.5 MG/3 ML Neb Soln NEB ONE (20:07)
--- NOTE | 2018-10-17 20:10 | EDM.PDOC ---
ED HPI GENERAL MEDICAL PROBLEM - General Chief Complaint: Respiratory Problem Stated Complaint: SHORTNESS OF BREATH Time Seen by Provider: 10/17/18 20:08 Source of Information: Reports: Patient History Limitations: Reports: No Limitations - History of Present Illness INITIAL COMMENTS - FREE TEXT/NARRATIVE: HISTORY AND PHYSICAL: History of present illness: Patient is a 63-year-old male with past medical history of CAD with CABG, hypertension, hypercholesterolemia, multiple myeloma on chemotherapy here for complaint of shortness of breath. He states he was seen in the ED 4 days ago for acute bronchitis and was started on azithromycin, prednisone burst, albuterol inhaler, and tessalon perles. He states he knew this "250mg antibiotic wouldn't work." He states he gets bronchitis every year around this time. He is having a worsening cough and feeling short of breath. He denies significant pulmonary history and no smoking history. He denies chest pain, nausea, vomiting, diarrhea, abdominal pain, fevers, or chills. He has not schedule a follow up with his primary care provider as he "doesn't have time for that." He is 94% on RA on arrival. Blood cultures from 10/14/18 are negative Review of systems: As per history of present illness and below otherwise all systems reviewed and negative. Past medical history: As per history of present illness and as reviewed below otherwise noncontributory. Surgical history: As per history of present illness and as reviewed below otherwise noncontributory. Social history: No reported history of drug or alcohol abuse. Family history: As per history of present illness and as reviewed below otherwise noncontributory. Physical exam: General: Patient sitting comfortably in no acute distress and nontoxic appearing HEENT: Atraumatic, normocephalic, pupils reactive, negative for conjunctival pallor or scleral icterus, mucous membranes moist, throat clear, neck supple, nontender, trachea midline. No meningeal signs. Lungs: Wheezing noted of lung bases bilaterally without rhonchi or rales, chest nontender. No increased respiratory effort Heart: S1S2, regular, negative for clicks, rubs, or overt murmur. Abdomen: Soft, nondistended, nontender. Negative for masses or hepatosplenomegaly. Negative for costovertebral tenderness. No rigidity, rebound , guarding. Pelvis: Stable nontender. Genitourinary: Deferred. Rectal: Deferred. Extremities: Atraumatic, negative for cords or calf pain. Neurovascular unremarkable. Neuro: Awake, alert, oriented. Cranial nerves II through XII unremarkable. Cerebellum unremarkable. Motor and sensory unremarkable throughout. Exam nonfocal. Notes: Explained to patient that his labs and chest x-ray are normal and this is viral. He strongly feels he needs more antibiotics as this is what has worked for him in the past. He states the tessalon perles did not helping much with the cough. He is using the inhaler very 4 hours and has some relief with this. He states codeine cough syrup has helped in the past. He is currently on morphine and norco PRN for bone pain related to his multiple myeloma. I explained to patient that he cannot take the codeine cough syrup at the same time as he is taking these other medications. Diagnostics: CBC, CMP, troponin, EKG, chest x-ray Therapeutics: DuoNeb Prescriptions: Augmentin Phenergan with codeine Impression: Acute bronchitis Plan: 1. Take medication as instructed. Continue rescue inhaler every 4 hours as needed. You may take cough syrup at bedtime as needed, do not take with your pain medications. 2. Follow up with primary care provider 3. Return to ED as needed as discussed Definitive disposition and diagnosis as appropriate pending reevaluation and review of above. Treatments RN FORENSIC: Reports: EKG - Related Data Allergies Allergy/AdvReac Type Severity Reaction Status Date / Time No Known Allergies Allergy Verified 10/17/18 20:05 Home Meds: Home Meds Hydrochlorothiazide/Valsartan [Diovan HCTZ 80-12.5 MG] 1 tab PO DAILY 02/11/14 [ History] Metoprolol Succinate [Toprol XL 100mg] 100 mg PO BID 02/11/14 [History] Multivitamin [Multivitamins] 1 each PO DAILY 02/11/14 [History] [place]-3/DHA/Epa/Fish Oil [Fish Oil Dr 500 mg Softgel] 1,000 mg PO DAILY [History] atorvaSTATin [Lipitor] 10 mg PO BEDTIME 02/11/14 [History] Albuterol [Ventolin HFA] 1 puff INH Q4H PRN 02/11/18 [History] Aspirin [Aspirin EC] 325 mg PO DAILY 10/14/18 [History] Past Medical History - Past Health History Medical/Surgical History: Denies Medical/Surgical History HEENT History: Reports: None Cardiovascular History: Reports: Bypass, CAD, High Cholesterol, Hypertension Respiratory History: Reports: Bronchitis, Recurrent, Pneumonia, Recurrent Other Respiratory History: bronchitis Gastrointestinal History: Reports: None Genitourinary History: Reports: BPH Musculoskeletal History: Reports: None Neurological History: Reports: None Psychiatric History: Reports: None Endocrine/Metabolic History: Reports: Obesity/BMI 30+ Hematologic History: Reports: None Immunologic History: Reports: None Oncologic (Cancer) History: Reports: Other (See Below) Other Oncologic History: multiple myeloma Dermatologic History: Reports: None - Infectious Disease History Infectious Disease History: Reports: Chicken Pox - Past Surgical History Head Surgeries/Procedures: Reports: None HEENT Surgical History: Reports: None Cardiovascular Surgical History: Reports: Coronary Artery Bypass GI Surgical History: Reports: None Musculoskeletal Surgical History: Reports: None Social & Family History - Family History Family Medical History: Noncontributory Cardiac: Reports: CAD, High Cholesterol, Hypertension, [place] Endocrine/Metabolic: Reports: Diabetes, Type I, Diabetes, type II, Obesity/MBI 30+ - Tobacco Use Smoking Status *Q: Former Smoker Used Tobacco, but Quit: Yes Month/Year Tobacco Last Used: 10 - Caffeine Use Caffeine Use: Reports: Coffee - Recreational Drug Use Recreational Drug Use: No - Living Situation & Occupation Occupation: Employed ED ROS GENERAL - Review of Systems Review Of Systems: ROS reveals no pertinent complaints other than HPI. ED EXAM, GENERAL - Physical Exam Exam: See Below (see dictation) Course - Vital Signs Last Recorded V/S: Last Vital Signs Temp 98.5 F 10/17/18 19:50 Pulse 89 10/17/18 20:35 Resp 20 10/17/18 20:35 BP 133/83 10/17/18 20:35 Pulse Ox 95 10/17/18 20:35 - Orders/Labs/Meds Orders: Active Orders 24 hr Category Date Time Status RT Aerosol Therapy [RC] ASDIRECTED Care 10/17/18 20:08 Active Sodium Chloride 0.9% [Saline Flush] Med 10/17/18 20:13 Active 10 ml FLUSH ASDIRECTED PRN Sodium Chloride 0.9% [Saline Flush] Med 10/17/18 20:13 Active 2.5 ml FLUSH ASDIRECTED PRN Saline Lock Insert [OM.PC] Stat Oth 10/17/18 20:13 Ordered Medication Orders Sodium Chloride (Saline Flush) 10 ml FLUSH ASDIRECTED PRN PRN Reason: Keep Vein Open Sodium Chloride (Saline Flush) 2.5 ml FLUSH ASDIRECTED PRN PRN Reason: Keep Vein Open Labs: Laboratory Tests 10/17/18 10/17/18 Range/Units 20:10 20:10 WBC 5.85 (4.0-11.0) K/uL RBC 4.78 (4.50-5.90) M/uL Hgb 13.5 (13.0-17.0) g/dL Hct 38.3 (38.0-50.0) % MCV 80.1 (80.0-98.0) fL MCH 28.2 (27.0-32.0) pg MCHC 35.2 (31.0-37.0) g/dL RDW Std Deviation 41.3 (28.0-62.0) fl RDW Coeff of Isela 14 (11.0-15.0) % Plt Count 132 L (150-400) K/uL MPV 10.10 (7.40-12.00) fL Neut % (Auto) 79.0 (48.0-80.0) % Lymph % (Auto) 8.2 L (16.0-40.0) % [place] % (Auto) 11.6 (0.0-15.0) % Eos % (Auto) 1.0 (0.0-7.0) % Baso % (Auto) 0.2 (0.0-1.5) % Neut # (Auto) 4.6 (1.4-5.7) K/uL Lymph # (Auto) 0.5 L (0.6-2.4) K/uL [place] # (Auto) 0.7 (0.0-0.8) K/uL Eos # (Auto) 0.1 (0.0-0.7) K/uL Baso # (Auto) 0.0 (0.0-0.1) K/uL Nucleated RBC % 0.0 /100WBC Nucleated RBCs # 0 K/uL Sodium 138 (136-148) mmol/L Potassium 3.9 (3.5-5.1) mmol/L Chloride 102 (98-107) mmol/L Carbon Dioxide 24.0 (21.0-32.0) mmol/L BUN 13 (7.0-18.0) mg/dL Creatinine 0.7 L (0.8-1.3) mg/dL Est Cr Clr Drug Dosing TNP Estimated GFR (MDRD) > 60.0 ml/min Glucose 138 H (74-106) mg/dL Calcium 8.8 (8.5-10.1) mg/dL Total Bilirubin 0.9 (0.2-1.0) mg/dL AST 17 (15-37) IU/L ALT 21 (14-63) IU/L Alkaline Phosphatase 54 (46-116) U/L Troponin I < 0.050 (0.000-0.056) ng/mL Total Protein 6.7 (6.4-8.2) g/dL Albumin 3.3 L (3.4-5.0) g/dL Globulin 3.4 (2.6-4.0) g/dL Albumin/Globulin Ratio 1.0 (0.9-1.6) Meds: Medications Generic Name Dose Route Start Last Admin Trade Name Freq PRN Reason Stop Dose Admin Sodium Chloride 10 ml 10/17/18 20:13 Saline Flush FLUSH ASDIRECTED PRN Keep Vein Open Sodium Chloride 2.5 ml 10/17/18 20:13 Saline Flush FLUSH ASDIRECTED PRN Keep Vein Open Discontinued Medications Generic Name Dose Route Start Last Admin Trade Name Freq PRN Reason Stop Dose Admin Albuterol/Ipratropium 3 ml 10/17/18 20:07 10/17/18 20:24 Duoneb 3.0-0.5 Mg/3 Ml NEB 10/17/18 20:08 3 ml ONETIME ONE Administration Sodium Chloride 1,000 mls @ 999 mls/hr 10/17/18 20:13 10/17/18 20:25 Normal Saline IV 10/17/18 21:13 999 mls/hr STAT ONE Administration Departure - Departure Time of Disposition: 21:24 Disposition: Home, Self-Care 01 Condition: Good Clinical Impression: Acute bronchitis Qualifiers: Bronchitis organism: unspecified organism Qualified Code(s): J20.9 - Acute bronchitis, unspecified - Discharge Information Referrals: PCP,Unknown [Primary Care Provider] - Forms: ED Department Discharge Additional Instructions: The following information is given to patients seen in the emergency department who are being discharged to home. This information is to outline your options for follow-up care. We provide all patients seen in our emergency department with a follow-up referral. The need for follow-up, as well as the timing and circumstances, are variable depending upon the specifics of your emergency department visit. If you don't have a primary care physician on staff, we will provide you with a referral. We always advise you to contact your personal physician following an emergency department visit to inform them of the circumstance of the visit and for follow-up with them and/or the need for any referrals to a consulting specialist. The emergency department will also refer you to a specialist when appropriate. This referral assures that you have the opportunity for follow-up care with a specialist. All of these measure are taken in an effort to provide you with optimal care, which includes your follow-up. Under all circumstances we always encourage you to contact your private physician who remains a resource for coordinating your care. When calling for follow-up care, please make the office aware that this follow-up is from your recent emergency room visit. If for any reason you are refused follow-up, please contact the [facility] Emergency Department at and asked to speak to the emergency department charge nurse. [facility] [address] [place] [id number] [place] [address] 1. Take medication as instructed. Continue rescue inhaler every 4 hours as needed. You may take cough syrup at bedtime as needed, do not take with your pain medications. 2. Follow up with primary care provider 3. Return to ED as needed as discussed - My Orders Last 24 Hours: My Active Orders 10/17/18 20:08 RT Aerosol Therapy [RC] ASDIRECTED 10/17/18 20:13 Sodium Chloride 0.9% [Saline Flush] 10 ml FLUSH ASDIRECTED PRN Sodium Chloride 0.9% [Saline Flush] 2.5 ml FLUSH ASDIRECTED PRN Saline Lock Insert [OM.PC] Stat - Assessment/Plan Last 24 Hours: My Active Orders 10/17/18 20:08 RT Aerosol Therapy [RC] ASDIRECTED 10/17/18 20:13 Sodium Chloride 0.9% [Saline Flush] 10 ml FLUSH ASDIRECTED PRN Sodium Chloride 0.9% [Saline Flush] 2.5 ml FLUSH ASDIRECTED PRN Saline Lock Insert [OM.PC] Stat
[2018-10-17] MEDS ORDERED: Sodium Chloride 0.9% 10 ML Syringe FLUSH PRN (20:13)
[2018-10-17] MEDS ORDERED: Sodium Chloride 0.9% 2.5 ML Syringe FLUSH PRN (20:13)
[2018-10-17] MEDS ORDERED: Sodium Chloride 0.9% 1,000 ML IV ONE (20:13)
[2018-10-17 20:46] LABS: CHLORIDE,CL 102 mmol/L (98-107); SODIUM,NA 138 mmol/L (136-148)
--- NOTE | 2018-10-17 21:08 | CR ---
Indication: Dyspnea Technique: Chest 1 view Comparison: October 14, 2018 Findings/Impression: Stable cardiac size. Postoperative changes of median sternotomy. Normal pulmonary vasculature. Remote right posterior rib fracture. No acute focal infiltrate, effusion, or pneumothorax. Lytic lesions within the clavicle and right glenoid. Correlate with any history of malignancy. Chest CT would be useful for further evaluation if clinically indicated. Dictated by Freya Smith MD @ Oct 17 2018 9:06PM Signed by Dr. Freya Smith @ Oct 17 2018 9:06PM
[2018-10-17 21:49] VITALS: BP 142/78
== END 2018-10-17 21:33 | disposition home or self-care (01) ==
LOC: MW.ED 19:50
DX: J20.9 Acute bronchitis, unspecified (principal); I25.10 Atherosclerotic heart disease of native coronary artery without angina pectoris; E78.00 Pure hypercholesterolemia, unspecified; I10 Essential (primary) hypertension; Z95.1 Presence of aortocoronary bypass graft; Z79.899 Other long term (current) drug therapy; Z87.891 Personal history of nicotine dependence; Z79.82 Long term (current) use of aspirin
CPT/HCPCS: 36415; 71045; 80053; 84484; 85025; 94640; 96360; 99285; J7040; 99283; J7620-GY

== ENCOUNTER 2019-02-04 14:30 | Emergency (ER) | payer BC ==
--- NOTE | 2019-02-04 14:51 | EDM.PDOC ---
ED HPI GENERAL MEDICAL PROBLEM - General Chief Complaint: Neuro Symptoms/Deficits Stated Complaint: SOB Time Seen by Provider: 02/04/19 14:39 - History of Present Illness INITIAL COMMENTS - FREE TEXT/NARRATIVE: HISTORY AND PHYSICAL: History of present illness: Patient is a 64-year-old white male with past medical history significant for coronary disease coronary bypass grafting hypertension hypercholesterolemia multiple myeloma, atrial fibrillation presents with a concern of dizziness he states it is off and on for several weeks he states he felt like he was going to pass out which prompted his visit. There's been no chest pain fever chills nausea vomiting. Review of systems: As per history of present illness and below otherwise all systems reviewed and negative. Past medical history: As per history of present illness and as reviewed below otherwise noncontributory. Surgical history: As per history of present illness and as reviewed below otherwise noncontributory. Social history: No reported history of drug or alcohol abuse. Family history: As per history of present illness and as reviewed below otherwise noncontributory. Physical exam: HEENT: Atraumatic, normocephalic, pupils reactive, negative for conjunctival pallor or scleral icterus, mucous membranes moist, throat clear, neck supple, nontender, trachea midline. Lungs: Clear to auscultation, breath sounds equal bilaterally, chest nontender. Heart: S1S2, irregularly irregular, negative for clicks, rubs, or JVD. Abdomen: Soft, nondistended, nontender. Negative for masses or hepatosplenomegaly. Negative for costovertebral tenderness. Pelvis: Stable nontender. Genitourinary: Deferred. Rectal: Deferred. Extremities: Atraumatic, negative for cords or calf pain. Neurovascular unremarkable. Neuro: Awake, alert, oriented. Cranial nerves II through XII unremarkable. Cerebellum unremarkable. Motor and sensory unremarkable throughout. Exam nonfocal. Diagnostics: CBC CMP troponin PT/INR chest x-ray EKG CT brain Therapeutics: IV O2 monitor Impression: #1 dizziness #2 atrial fibrillation #3 history of hypertension 4 history of coronary artery disease #5 history of multiple myeloma #6 near-syncope Definitive disposition and diagnosis as appropriate pending reevaluation and review of above. - Related Data Allergies Allergy/AdvReac Type Severity Reaction Status Date / Time No Known Allergies Allergy Verified 02/04/19 14:35 Home Meds: Home Meds Hydrochlorothiazide/Valsartan [Diovan HCTZ 80-12.5 MG] 25 mg PO DAILY 02/11/14 [ History] Metoprolol Succinate [Toprol XL 100mg] 100 mg PO BID 02/11/14 [History] Multivitamin [Multivitamins] 1 each PO DAILY 02/11/14 [History] [place]-3/DHA/Epa/Fish Oil [Fish Oil Dr 500 mg Softgel] 1,000 mg PO DAILY [History] atorvaSTATin [Lipitor] 40 mg PO BEDTIME 02/11/14 [History] Albuterol [Ventolin HFA] 1 puff INH Q4H PRN 02/11/18 [History] Aspirin [Aspirin EC] 81 mg PO DAILY 10/14/18 [History] Diltiazem HCl [Dilt-XR] 120 mg PO DAILY 02/04/19 [History] Morphine Sulfate [Morphine Sulfate ER] 15 mg PO BID 02/04/19 [History] Prochlorperazine [Compazine] 10 mg PO TID PRN 02/04/19 [History] Tamsulosin HCl 0.4 mg PO DAILY 02/04/19 [History] Past Medical History - Past Health History Medical/Surgical History: Denies Medical/Surgical History HEENT History: Reports: None Cardiovascular History: Reports: Bypass, CAD, High Cholesterol, Hypertension Respiratory History: Reports: Bronchitis, Recurrent, Pneumonia, Recurrent Other Respiratory History: bronchitis Gastrointestinal History: Reports: None Genitourinary History: Reports: BPH Musculoskeletal History: Reports: None Neurological History: Reports: None Psychiatric History: Reports: None Endocrine/Metabolic History: Reports: Obesity/BMI 30+ Hematologic History: Reports: None Immunologic History: Reports: None Oncologic (Cancer) History: Reports: Other (See Below) Other Oncologic History: multiple myeloma Dermatologic History: Reports: None - Infectious Disease History Infectious Disease History: Reports: Chicken Pox - Past Surgical History Head Surgeries/Procedures: Reports: None HEENT Surgical History: Reports: None Cardiovascular Surgical History: Reports: Coronary Artery Bypass GI Surgical History: Reports: None Musculoskeletal Surgical History: Reports: None Social & Family History - Family History Family Medical History: Noncontributory Cardiac: Reports: CAD, High Cholesterol, Hypertension, [place] Endocrine/Metabolic: Reports: Diabetes, Type I, Diabetes, type II, Obesity/MBI 30+ - Tobacco Use Smoking Status *Q: Former Smoker Used Tobacco, but Quit: Yes Month/Year Tobacco Last Used: 1998 - Caffeine Use Caffeine Use: Reports: Coffee - Recreational Drug Use Recreational Drug Use: Yes Drug Use in Last 12 Months: Yes Recreational Drug Type: Reports: Marijuana/Hashish Recreational Drug Use Frequency: Weekly - Living Situation & Occupation Occupation: Employed ED ROS GENERAL - Review of Systems Review Of Systems: ROS reveals no pertinent complaints other than HPI. ED EXAM, GENERAL - Physical Exam Exam: See Below (See dictation) Course - Vital Signs Text/Narrative:: I discussed with patient all of his clinical findings and clinical statement as well as concerns regarding this episode patient feels markedly improved after IV fluids he was offered admission and is adamant about discharge to home and close follow-up with his primary medical doctor understands all the risk and benefit Last Recorded V/S: Last Vital Signs Temp 36.2 C 02/04/19 14:33 Pulse 78 02/04/19 16:44 Resp 16 02/04/19 16:44 BP 115/50 L 02/04/19 16:44 Pulse Ox 97 02/04/19 16:44 - Orders/Labs/Meds Orders: Active Orders 24 hr Category Date Time Status Cardiac Monitoring [RC] . DIRECTED Care 02/04/19 16:20 Active EKG 12 Lead [EKG Documentation Completion] [RC] STAT Care 02/04/19 15:32 Active EKG Documentation Completion [RC] STAT Care 02/04/19 16:20 Inactive Oxygen Therapy, ED [RC] ASDIRECTED Care 02/04/19 16:20 Active UA RFX LESLIE AND CULT IF INDIC [URIN] Stat Lab 02/04/19 16:20 Ordered Sodium Chloride 0.9% [Saline Flush] Med 02/04/19 16:20 Active 10 ml FLUSH ASDIRECTED PRN Sodium Chloride 0.9% [Saline Flush] Med 02/04/19 16:20 Active 2.5 ml FLUSH ASDIRECTED PRN Saline Lock Insert [OM.PC] Stat Oth 02/04/19 16:20 Ordered Medication Orders Sodium Chloride (Saline Flush) 10 ml FLUSH ASDIRECTED PRN PRN Reason: Keep Vein Open Sodium Chloride (Saline Flush) 2.5 ml FLUSH ASDIRECTED PRN PRN Reason: Keep Vein Open Labs: Laboratory Tests 02/04/19 02/04/19 02/04/19 Range/Units 14:48 14:48 14:48 WBC 8.03 (4.0-11.0) K/uL RBC 5.61 (4.50-5.90) M/uL Hgb 15.9 (13.0-17.0) g/dL Hct 46.0 (38.0-50.0) % MCV 82.0 (80.0-98.0) fL MCH 28.3 (27.0-32.0) pg MCHC 34.6 (31.0-37.0) g/dL RDW Std Deviation 42.7 (28.0-62.0) fl RDW Coeff of Isela 14 (11.0-15.0) % Plt Count 188 (150-400) K/uL MPV 10.10 (7.40-12.00) fL Neut % (Auto) 81.7 H (48.0-80.0) % Lymph % (Auto) 9.8 L (16.0-40.0) % [place] % (Auto) 7.3 (0.0-15.0) % Eos % (Auto) 1.1 (0.0-7.0) % Baso % (Auto) 0.1 (0.0-1.5) % Neut # (Auto) 6.6 H (1.4-5.7) K/uL Lymph # (Auto) 0.8 (0.6-2.4) K/uL [place] # (Auto) 0.6 (0.0-0.8) K/uL Eos # (Auto) 0.1 (0.0-0.7) K/uL Baso # (Auto) 0.0 (0.0-0.1) K/uL Nucleated RBC % 0.0 /100WBC Nucleated RBCs # 0 K/uL INR 1.01 Sodium 141 (136-148) mmol/L Potassium 3.4 L (3.5-5.1) mmol/L Chloride 106 (98-107) mmol/L Carbon Dioxide 26.1 (21.0-32.0) mmol/L BUN 7 (7.0-18.0) mg/dL Creatinine 0.8 (0.8-1.3) mg/dL Est Cr Clr Drug Dosing 95.05 mL/min Estimated GFR (MDRD) > 60.0 ml/min Glucose 145 H (74-106) mg/dL Calcium 9.1 (8.5-10.1) mg/dL Total Bilirubin 0.9 (0.2-1.0) mg/dL AST 13 L (15-37) IU/L ALT 26 (14-63) IU/L Alkaline Phosphatase 47 (46-116) U/L Troponin I < 0.050 (0.000-0.056) ng/mL Total Protein 6.5 (6.4-8.2) g/dL Albumin 3.7 (3.4-5.0) g/dL Globulin 2.8 (2.6-4.0) g/dL Albumin/Globulin Ratio 1.3 (0.9-1.6) Meds: Medications Generic Name Dose Route Start Last Admin Trade Name Freq PRN Reason Stop Dose Admin Sodium Chloride 10 ml 02/04/19 16:20 Saline Flush FLUSH ASDIRECTED PRN Keep Vein Open Sodium Chloride 2.5 ml 02/04/19 16:20 Saline Flush FLUSH ASDIRECTED PRN Keep Vein Open Discontinued Medications Generic Name Dose Route Start Last Admin Trade Name Freq PRN Reason Stop Dose Admin Sodium Chloride 1,000 mls @ 999 mls/hr 02/04/19 16:20 02/04/19 16:44 Normal Saline IV 02/04/19 17:20 999 mls/hr STAT ONE Administration Departure - Departure Time of Disposition: 17:23 Disposition: Home, Self-Care 01 Condition: Good Clinical Impression: Weakness, Near syncope, Atrial fibrillation, History of multiple myeloma - Discharge Information Referrals: PCP,None [Primary Care Provider] - Forms: ED Department Discharge Additional Instructions: The following information is given to patients seen in the emergency department who are being discharged to home. This information is to outline your options for follow-up care. We provide all patients seen in our emergency department with a follow-up referral. The need for follow-up, as well as the timing and circumstances, are variable depending upon the specifics of your emergency department visit. If you don't have a primary care physician on staff, we will provide you with a referral. We always advise you to contact your personal physician following an emergency department visit to inform them of the circumstance of the visit and for follow-up with them and/or the need for any referrals to a consulting specialist. The emergency department will also refer you to a specialist when appropriate. This referral assures that you have the opportunity for followup care with a specialist. All of these measure are taken in an effort to provide you with optimal care, which includes your followup. Under all circumstances we always encourage you to contact your private physician who remains a resource for coordinating your care. When calling for followup care, please make the office aware that this follow-up is from your recent emergency room visit. If for any reason you are refused follow-up, please contact the [facility] emergency department at and asked to speak to the emergency department charge nurse. Continue current medications follow-up primary medical doctor return as needed as discussed - My Orders Last 24 Hours: My Active Orders 02/04/19 15:32 EKG 12 Lead [EKG Documentation Completion] [RC] STAT 02/04/19 16:20 Cardiac Monitoring [RC] . DIRECTED EKG Documentation Completion [RC] STAT Oxygen Therapy, ED [RC] ASDIRECTED UA RFX LESLIE AND CULT IF INDIC [URIN] Stat Sodium Chloride 0.9% [Saline Flush] 10 ml FLUSH ASDIRECTED PRN Sodium Chloride 0.9% [Saline Flush] 2.5 ml FLUSH ASDIRECTED PRN Saline Lock Insert [OM.PC] Stat - Assessment/Plan Last 24 Hours: My Active Orders 02/04/19 15:32 EKG 12 Lead [EKG Documentation Completion] [RC] STAT 02/04/19 16:20 Cardiac Monitoring [RC] . DIRECTED EKG Documentation Completion [RC] STAT Oxygen Therapy, ED [RC] ASDIRECTED UA RFX LESLIE AND CULT IF INDIC [URIN] Stat Sodium Chloride 0.9% [Saline Flush] 10 ml FLUSH ASDIRECTED PRN Sodium Chloride 0.9% [Saline Flush] 2.5 ml FLUSH ASDIRECTED PRN Saline Lock Insert [OM.PC] Stat
--- NOTE | 2019-02-04 15:25 | CT ---
EXAMINATION: Non contrast CT head. Coronal and sagittal reformats. HISTORY: Pain FINDINGS: No evidence of intra or extra axial hemorrhage, mass, midline shift, hydrocephalus or edema. No hypoattenuation changes in the major vascular territories to suggest acute infarct. No abnormal intracranial calcifications are detected. Mild vascular calcifications are noted. Paranasal sinuses and mastoid air cells are essentially well aerated without substantial findings. Pituitary fossa appears unremarkable. Orbits and globes are symmetric. Calvarium is intact. No evidence of skull fracture. IMPRESSION: No acute intracranial findings.
[2019-02-04] MEDS ORDERED: Sodium Chloride 0.9% 2.5 ML Syringe FLUSH PRN (16:20)
[2019-02-04] MEDS ORDERED: Sodium Chloride 0.9% 1,000 ML IV ONE (16:20)
[2019-02-04] MEDS ORDERED: Sodium Chloride 0.9% 10 ML Syringe FLUSH PRN (16:20)
[2019-02-04 16:46] LABS: CHLORIDE,CL 106 mmol/L (98-107); SODIUM,NA 141 mmol/L (136-148)
[2019-02-04 17:44] VITALS: BP 136/83
== END 2019-02-04 17:43 | disposition home or self-care (01) ==
LOC: MW.ED 14:30
DX: R55 Syncope and collapse (principal); R53.1 Weakness; R42 Dizziness and giddiness; I48.91 Unspecified atrial fibrillation; I10 Essential (primary) hypertension; I25.10 Atherosclerotic heart disease of native coronary artery without angina pectoris; C90.00 Multiple myeloma not having achieved remission; Z79.899 Other long term (current) drug therapy; Z79.82 Long term (current) use of aspirin; E78.00 Pure hypercholesterolemia, unspecified; Z87.891 Personal history of nicotine dependence
CPT/HCPCS: 36415; 70450; 80053; 84484; 85025; 85610; 93005; 96360; 99284; J7040

== ENCOUNTER 2019-02-05 18:23 | Inpatient (IN) | payer BC ==
[2019-02-05] MEDS ORDERED: Aspirin 81 MG Tab.Chew PO ONE (18:26)
[2019-02-05] MEDS ORDERED: Sodium Chloride 0.9% 2.5 ML Syringe FLUSH PRN (18:26)
[2019-02-05] MEDS ORDERED: Nitroglycerin 2% Oint 1 GM UD Packet TOP ONE (18:26)
[2019-02-05] MEDS ORDERED: Sodium Chloride 0.9% 10 ML Syringe FLUSH PRN (18:26)
--- NOTE | 2019-02-05 18:29 | EDM.PDOC ---
ED HPI GENERAL MEDICAL PROBLEM - General Chief Complaint: Cardiovascular Problem Stated Complaint: PT HAS DIFFICULTY BREATHING Time Seen by Provider: 02/05/19 18:25 - History of Present Illness INITIAL COMMENTS - FREE TEXT/NARRATIVE: HISTORY AND PHYSICAL: History of present illness: Patient is 64-year-old white male with history of coronary artery disease, hypercholesterolemia, multiple myeloma, coronary artery bypass Graft and atrial fibrillation was seen yesterday for dizziness chest pain shortness of breath workup was unremarkable and patient was offered admission for observation he declined and was discharged home he returns now with similar. He is agreeable to admission at this time. Review of systems: As per history of present illness and below otherwise all systems reviewed and negative. Past medical history: As per history of present illness and as reviewed below otherwise noncontributory. Surgical history: As per history of present illness and as reviewed below otherwise noncontributory. Social history: No reported history of drug or alcohol abuse. Family history: As per history of present illness and as reviewed below otherwise noncontributory. Physical exam: HEENT: Atraumatic, normocephalic, pupils reactive, negative for conjunctival pallor or scleral icterus, mucous membranes moist, throat clear, neck supple, nontender, trachea midline. Lungs: Clear to auscultation, breath sounds equal bilaterally, chest nontender. Heart: S1S2, irregularly irregular, negative for clicks, rubs, or JVD. Abdomen: Soft, nondistended, nontender. Negative for masses or hepatosplenomegaly. Negative for costovertebral tenderness. Pelvis: Stable nontender. Genitourinary: Deferred. Rectal: Deferred. Extremities: Atraumatic, negative for cords or calf pain. Neurovascular unremarkable. Neuro: Awake, alert, oriented. Cranial nerves II through XII unremarkable. Cerebellum unremarkable. Motor and sensory unremarkable throughout. Exam nonfocal. Diagnostics: CBC CMP BNP troponin PT/INR chest x-ray Therapeutics: IV O2 monitor aspirin 324 mg Nitropaste 1 inch Impression: #1 chest pain #2 dyspnea #3 history of major fibrillation #4 history of coronary bypass graft #5 history of multiple myeloma #6 history of hypertension Definitive disposition and diagnosis as appropriate pending reevaluation and review of above. - Related Data Allergies Allergy/AdvReac Type Severity Reaction Status Date / Time No Known Allergies Allergy Verified 02/05/19 18:26 Home Meds: Home Meds Hydrochlorothiazide/Valsartan [Diovan HCTZ 80-12.5 MG] 25 mg PO DAILY 02/11/14 [ History] Metoprolol Succinate [Toprol XL 100mg] 100 mg PO BID 02/11/14 [History] Multivitamin [Multivitamins] 1 each PO DAILY 02/11/14 [History] [place]-3/DHA/Epa/Fish Oil [Fish Oil Dr 500 mg Softgel] 1,000 mg PO DAILY [History] atorvaSTATin [Lipitor] 40 mg PO BEDTIME 02/11/14 [History] Albuterol [Ventolin HFA] 1 puff INH Q4H PRN 02/11/18 [History] Aspirin [Aspirin EC] 81 mg PO DAILY 10/14/18 [History] Diltiazem HCl [Dilt-XR] 120 mg PO DAILY 02/04/19 [History] Morphine Sulfate [Morphine Sulfate ER] 15 mg PO BID 02/04/19 [History] Prochlorperazine [Compazine] 10 mg PO TID PRN 02/04/19 [History] Tamsulosin HCl 0.4 mg PO DAILY 02/04/19 [History] Diltiazem HCl [Dilt-XR] 120 mg PO DAILY 02/05/19 [History] Past Medical History - Past Health History Medical/Surgical History: Denies Medical/Surgical History HEENT History: Reports: None Cardiovascular History: Reports: Bypass, CAD, High Cholesterol, Hypertension Respiratory History: Reports: Bronchitis, Recurrent, Pneumonia, Recurrent Other Respiratory History: bronchitis Gastrointestinal History: Reports: None Genitourinary History: Reports: BPH Musculoskeletal History: Reports: None Neurological History: Reports: None Psychiatric History: Reports: None Endocrine/Metabolic History: Reports: Obesity/BMI 30+ Hematologic History: Reports: None Immunologic History: Reports: None Oncologic (Cancer) History: Reports: Other (See Below) Other Oncologic History: multiple myeloma Dermatologic History: Reports: None - Infectious Disease History Infectious Disease History: Reports: Chicken Pox - Past Surgical History Head Surgeries/Procedures: Reports: None HEENT Surgical History: Reports: None Cardiovascular Surgical History: Reports: Coronary Artery Bypass GI Surgical History: Reports: None Musculoskeletal Surgical History: Reports: None Social & Family History - Family History Family Medical History: Noncontributory Cardiac: Reports: CAD, High Cholesterol, Hypertension, [place] Endocrine/Metabolic: Reports: Diabetes, Type I, Diabetes, type II, Obesity/MBI 30+ - Caffeine Use Caffeine Use: Reports: Coffee - Living Situation & Occupation Occupation: Employed ED ROS GENERAL - Review of Systems Review Of Systems: ROS reveals no pertinent complaints other than HPI. ED EXAM, GENERAL - Physical Exam Exam: See Below (See dictation) Course - Vital Signs Last Recorded V/S: Last Vital Signs Temp 36.2 C 02/05/19 18:29 Pulse 55 L 02/05/19 18:29 Resp 16 02/05/19 19:08 BP 113/64 02/05/19 19:08 Pulse Ox 98 02/05/19 19:08 - Orders/Labs/Meds Orders: Active Orders 24 hr Category Date Time Status Cardiac Monitoring [RC] . DIRECTED Care 02/05/19 18:25 Active EKG 12 Lead [EKG Documentation Completion] [RC] STAT Care 02/05/19 19:03 Active EKG Documentation Completion [RC] STAT Care 02/05/19 18:25 Active Oxygen Therapy, ED [RC] ASDIRECTED Care 02/05/19 18:25 Active Pulse Oximetry [RC] ASDIRECTED Care 02/05/19 18:25 Active Sodium Chloride 0.9% [Normal Saline] 1,000 ml Med 02/05/19 18:30 Active IV STAT Sodium Chloride 0.9% [Saline Flush] Med 02/05/19 18:26 Active 10 ml FLUSH ASDIRECTED PRN Sodium Chloride 0.9% [Saline Flush] Med 02/05/19 18:26 Active 2.5 ml FLUSH ASDIRECTED PRN Saline Lock Insert [OM.PC] Stat Oth 02/05/19 18:25 Ordered Medication Orders Sodium Chloride (Normal Saline) 1,000 mls @ 125 mls/hr IV STAT MARCIAL Last Admin: 02/05/19 18:38 Dose: 125 mls/hr Sodium Chloride (Saline Flush) 10 ml FLUSH ASDIRECTED PRN PRN Reason: Keep Vein Open Last Admin: 02/05/19 18:38 Dose: 10 ml Sodium Chloride (Saline Flush) 2.5 ml FLUSH ASDIRECTED PRN PRN Reason: Keep Vein Open Last Admin: 02/05/19 18:39 Dose: 2.5 ml Labs: Laboratory Tests 02/05/19 02/05/1902/05/19 Range/Units 18:26 18:26 18:26 WBC 9.09 (4.0-11.0) K/uL RBC 5.57 (4.50-5.90) M/uL Hgb 15.8 (13.0-17.0) g/dL Hct 46.1 (38.0-50.0) % MCV 82.8 (80.0-98.0) fL MCH 28.4 (27.0-32.0) pg MCHC 34.3 (31.0-37.0) g/dL RDW Std Deviation 43.6 (28.0-62.0) fl RDW Coeff of Isela 15 (11.0-15.0) % Plt Count 201 (150-400) K/uL MPV 10.30 (7.40-12.00) fL Neut % (Auto) 80.8 H (48.0-80.0) % Lymph % (Auto) 9.2 L (16.0-40.0) % [place] % (Auto) 8.4 (0.0-15.0) % Eos % (Auto) 1.4 (0.0-7.0) % Baso % (Auto) 0.2 (0.0-1.5) % Neut # (Auto) 7.3 H (1.4-5.7) K/uL Lymph # (Auto) 0.8 (0.6-2.4) K/uL [place] # (Auto) 0.8 (0.0-0.8) K/uL Eos # (Auto) 0.1 (0.0-0.7) K/uL Baso # (Auto) 0.0 (0.0-0.1) K/uL Nucleated RBC % 0.0 /100WBC Nucleated RBCs # 0 K/uL INR 1.02 Sodium 143 (136-148) mmol/L Potassium 3.7 (3.5-5.1) mmol/L Chloride 106 (98-107) mmol/L Carbon Dioxide 27.1 (21.0-32.0) mmol/L BUN 11 (7.0-18.0) mg/dL Creatinine 0.9 (0.8-1.3) mg/dL Est Cr Clr Drug Dosing TNP Estimated GFR (MDRD) > 60.0 ml/min Glucose 121 H (74-106) mg/dL Calcium 9.1 (8.5-10.1) mg/dL Total Bilirubin 1.3 H (0.2-1.0) mg/dL AST 19 (15-37) IU/L ALT 33 (14-63) IU/L Alkaline Phosphatase 49 (46-116) U/L Troponin I < 0.050 (0.000-0.056) ng/mL B-Natriuretic Peptide (<100) PG/ML Total Protein 6.2 L (6.4-8.2) g/dL Albumin 3.9 (3.4-5.0) g/dL Globulin 2.3 L (2.6-4.0) g/dL Albumin/Globulin Ratio 1.7 H (0.9-1.6) 02/05/ Range/Units 18:26 WBC (4.0-11.0) K/uL RBC (4.50-5.90) M/uL Hgb (13.0-17.0) g/dL Hct (38.0-50.0) % MCV (80.0-98.0) fL MCH (27.0-32.0) pg MCHC (31.0-37.0) g/dL RDW Std Deviation (28.0-62.0) fl RDW Coeff of Isela (11.0-15.0) % Plt Count (150-400) K/uL MPV (7.40-12.00) fL Neut % (Auto) (48.0-80.0) % Lymph % (Auto) (16.0-40.0) % [place] % (Auto) (0.0-15.0) % Eos % (Auto) (0.0-7.0) % Baso % (Auto) (0.0-1.5) % Neut # (Auto) (1.4-5.7) K/uL Lymph # (Auto) (0.6-2.4) K/uL [place] # (Auto) (0.0-0.8) K/uL Eos # (Auto) (0.0-0.7) K/uL Baso # (Auto) (0.0-0.1) K/uL Nucleated RBC % /100WBC Nucleated RBCs # K/uL INR Sodium (136-148) mmol/L Potassium (3.5-5.1) mmol/L Chloride (98-107) mmol/L Carbon Dioxide (21.0-32.0) mmol/L BUN (7.0-18.0) mg/dL Creatinine (0.8-1.3) mg/dL Est Cr Clr Drug Dosing Estimated GFR (MDRD) ml/min Glucose (74-106) mg/dL Calcium (8.5-10.1) mg/dL Total Bilirubin (0.2-1.0) mg/dL AST (15-37) IU/L ALT (14-63) IU/L Alkaline Phosphatase (46-116) U/L Troponin I (0.000-0.056) ng/mL B-Natriuretic Peptide 278 H (<100) PG/ML Total Protein (6.4-8.2) g/dL Albumin (3.4-5.0) g/dL Globulin (2.6-4.0) g/dL Albumin/Globulin Ratio (0.9-1.6) Meds: Medications Generic Name Dose Route Start Last Admin Trade Name Freq PRN Reason Stop Dose Admin Sodium Chloride 1,000 mls @ 125 mls/hr 02/05/19 18:30 02/05/19 18:38 Normal Saline IV 125 mls/hr STAT MARCIAL Administration Sodium Chloride 10 ml 02/05/19 18:26 02/05/19 18:38 Saline Flush FLUSH 10 ml ASDIRECTED PRN Administration Keep Vein Open Sodium Chloride 2.5 ml 02/05/19 18:26 02/05/19 18:39 Saline Flush FLUSH 2.5 ml ASDIRECTED PRN Administration Keep Vein Open Discontinued Medications Generic Name Dose Route Start Last Admin Trade Name Freq PRN Reason Stop Dose Admin Aspirin 324 mg 02/05/19 18:02/05/19 18:37 Aspirin PO 02/05/19 18:27 324 mg ONETIME ONE Administration Nitroglycerin 1 gm 02/05/19 18:26 02/05/19 18:38 Nitro-Bid 2% TOP 02/05/19 18:27 1 gm ONETIME ONE Administration Departure - Departure Time of Disposition: 19:13 Disposition: Refer to Observation Condition: Good Clinical Impression: Chest pain, Atrial fibrillation, Dizziness CAD (coronary artery disease) Qualifiers: Coronary Disease-Associated Artery/Lesion type: [place] artery [place] vs. transplanted heart: [place] heart Associated angina: without angina Qualified Code(s): I25.10 - Atherosclerotic heart disease of [place] coronary artery without angina pectoris HTN (hypertension) Qualifiers: Hypertension type: essential hypertension Qualified Code(s): I10 - Essential ( primary) hypertension Forms: ED Department Discharge - My Orders Last 24 Hours: My Active Orders 02/05/19 18:25 Cardiac Monitoring [RC] . DIRECTED EKG Documentation Completion [RC] STAT Oxygen Therapy, ED [RC] ASDIRECTED Pulse Oximetry [RC] ASDIRECTED Saline Lock Insert [OM.PC] Stat 02/05/19 18:26 Sodium Chloride 0.9% [Saline Flush] 10 ml FLUSH ASDIRECTED PRN Sodium Chloride 0.9% [Saline Flush] 2.5 ml FLUSH ASDIRECTED PRN 02/05/19 18:30 Sodium Chloride 0.9% [Normal Saline] 1,000 ml IV STAT 02/05/19 19:03 EKG 12 Lead [EKG Documentation Completion] [RC] STAT - Assessment/Plan Last 24 Hours: My Active Orders 02/05/19 18:25 Cardiac Monitoring [RC] . DIRECTED EKG Documentation Completion [RC] STAT Oxygen Therapy, ED [RC] ASDIRECTED Pulse Oximetry [RC] ASDIRECTED Saline Lock Insert [OM.PC] Stat 02/05/19 18:26 Sodium Chloride 0.9% [Saline Flush] 10 ml FLUSH ASDIRECTED PRN Sodium Chloride 0.9% [Saline Flush] 2.5 ml FLUSH ASDIRECTED PRN 02/05/19 18:30 Sodium Chloride 0.9% [Normal Saline] 1,000 ml IV STAT 02/05/19 19:03 EKG 12 Lead [EKG Documentation Completion] [RC] STAT
[2019-02-05] MEDS: Sodium Chloride 0.9% 1,000 ML IV SCH (18:38)
--- NOTE | 2019-02-05 19:09 | CR ---
Indication: Chest pain, shortness of breath Technique: Chest 1 view Comparison: October 27, 2018 Findings/Impression: Normal cardiomediastinal silhouette. Status post median sternotomy. Linear atelectasis or scarring at the right lung base. No effusion or pneumothorax. Remote right posterior 8th rib fracture. No acute osseous abnormality. Dictated by Freya Smith MD @ Feb 05 2019 7:04PM Signed by Dr. Freya Smith @ Feb 05 2019 7:07PM
[2019-02-05 19:11] LABS: CHLORIDE,CL 106 mmol/L (98-107); SODIUM,NA 143 mmol/L (136-148)
[2019-02-05] MEDS ORDERED: Digoxin 500 MCG/2 ML Amp IVPUSH ONE (20:01)
--- NOTE | 2019-02-05 20:12 | PCM.HP ---
H&P History of Present Illness - General Date of Service: 02/05/19 Admit Problem/Dx: Admission Diagnosis/Problem Admission Diagnosis/Problem Chest pain - History of Present Illness Initial Comments - Free Text/Narative: 64 yo male with pmh of CAD, CABG, atrial fibrillation, multiple myeloma on chronic narcotics who presents with a three week history of dizziness and palpitations. Patient reports the dizziness is made worse when he stands. He sometime feels like he is going to pass out. He has associated symptoms of shortness of breath. He was seen last night in the ED and offered admission but declined. He came back into the ED with same symptoms. He declines evere having chest pain. In the ED he was noted to have an irregular heart rate in the 150s to 80s bpm. It was noted to be in atrial fibrillation on EKG. He was given ASA and nitro paste. His blood pressure was noted to be low when I was examining him at 98/54. He follow with Dr. Jacobson in clinic and has a scheduled follow up appointment on Sunday. - Related Data Allergies/Adverse Reactions: Allergies Allergy/AdvReac Type Severity Reaction Status Date / Time No Known Allergies Allergy Verified 02/05/19 18:26 Home Medications: Home Meds Multivitamin [Multivitamins] 1 each PO DAILY 02/11/14 [History] [place]-3/DHA/Epa/Fish Oil [Fish Oil Dr 500 mg Softgel] 1,000 mg PO DAILY [History] atorvaSTATin [Lipitor] 40 mg PO BEDTIME 02/11/14 [History] Albuterol [Ventolin HFA] 1 puff INH Q4H PRN 02/11/18 [History] Morphine Sulfate [Morphine Sulfate ER] 15 mg PO BID 02/04/19 [History] Prochlorperazine [Compazine] 10 mg PO TID PRN 02/04/19 [History] Amiodarone [Cordarone] 200 mg PO DAILY #30 tablet 02/08/19 [Rx] Apixaban [Eliquis] 5 mg PO BID #60 tablet 02/08/19 [Rx] Metoprolol Succinate [Toprol XL 100mg] 100 mg PO DAILY tab.er 02/08/19 [Rx] Past Medical History - Past Health History Medical/Surgical History: Denies Medical/Surgical History HEENT History: Reports: None Cardiovascular History: Reports: Bypass, CAD, High Cholesterol, Hypertension Respiratory History: Reports: Bronchitis, Recurrent, Pneumonia, Recurrent Other Respiratory History: bronchitis Gastrointestinal History: Reports: None Genitourinary History: Reports: BPH Musculoskeletal History: Reports: None Neurological History: Reports: None Psychiatric History: Reports: None Endocrine/Metabolic History: Reports: Obesity/BMI 30+ Hematologic History: Reports: None Immunologic History: Reports: None Oncologic (Cancer) History: Reports: Other (See Below) Other Oncologic History: multiple myeloma Dermatologic History: Reports: None - Infectious Disease History Infectious Disease History: Reports: Chicken Pox - Past Surgical History Head Surgeries/Procedures: Reports: None HEENT Surgical History: Reports: None Cardiovascular Surgical History: Reports: Coronary Artery Bypass GI Surgical History: Reports: None Musculoskeletal Surgical History: Reports: None Social & Family History - Family History Family Medical History: Noncontributory Cardiac: Reports: CAD, High Cholesterol, Hypertension, [place] Endocrine/Metabolic: Reports: Diabetes, Type I, Diabetes, type II, Obesity/MBI 30+ - Tobacco Use Smoking Status *Q: Never Smoker Second Hand Smoke Exposure: No - Caffeine Use Caffeine Use: Reports: Coffee - Recreational Drug Use Recreational Drug Use: Yes Recreational Drug Type: Reports: Marijuana/Hashish Recreational Drug Use Frequency: Weekly - Living Situation & Occupation Occupation: Employed H&P Review of Systems - Review of Systems: Review Of Systems: ROS reveals no pertinent complaints other than HPI. Exam - Exam Exam: See Below - Vital Signs Vital Signs: Last Vital Signs Temp 36.2 C 02/05/19 18:29 Pulse 104 H 02/05/19 20:05 Resp 16 02/05/19 20:05 BP 91/69 02/05/19 20:05 Pulse Ox 97 02/05/19 20:05 Weight: 81.647 kg - Exam General: Alert, Oriented HEENT: Mucosa Moist & [place] Neck: Supple, Trachea Midline Lungs: Clear to Auscultation, Normal Respiratory Effort Cardiovascular: Irregular Rhythm, Tachycardia GI/Abdominal Exam: Soft Extremities: Non-Tender, No Pedal Edema Skin: Warm, Dry, Intact - Patient Data Lab Results Last 24 hrs: Laboratory Results - last 24 hr 02/05/19 02/05/19 02/05/19 Range/Units 18:26 18:26 18:26 WBC 9.09 (4.0-11.0) K/uL RBC 5.57 (4.50-5.90) M/uL Hgb 15.8 (13.0-17.0) g/dL Hct 46.1 (38.0-50.0) % MCV 82.8 (80.0-98.0) fL MCH 28.4 (27.0-32.0) pg MCHC 34.3 (31.0-37.0) g/dL RDW Std Deviation 43.6 (28.0-62.0) fl RDW Coeff of Isela 15 (11.0-15.0) % Plt Count 201 (150-400) K/uL MPV 10.30 (7.40-12.00) fL Neut % (Auto) 80.8 H (48.0-80.0) % Lymph % (Auto) 9.2 L (16.0-40.0) % [place] % (Auto) 8.4 (0.0-15.0) % Eos % (Auto) 1.4 (0.0-7.0) % Baso % (Auto) 0.2 (0.0-1.5) % Neut # (Auto) 7.3 H (1.4-5.7) K/uL Lymph # (Auto) 0.8 (0.6-2.4) K/uL [place] # (Auto) 0.8 (0.0-0.8) K/uL Eos # (Auto) 0.1 (0.0-0.7) K/uL Baso # (Auto) 0.0 (0.0-0.1) K/uL Nucleated RBC % 0.0 /100WBC Nucleated RBCs # 0 K/uL INR 1.02 Sodium 143 (136-148) mmol/L Potassium 3.7 (3.5-5.1) mmol/L Chloride 106 (98-107) mmol/L Carbon Dioxide 27.1 (21.0-32.0) mmol/L BUN 11 (7.0-18.0) mg/dL Creatinine 0.9 (0.8-1.3) mg/dL Est Cr Clr Drug Dosing TNP Estimated GFR (MDRD) > 60.0 ml/min Glucose 121 H (74-106) mg/dL Calcium 9.1 (8.5-10.1) mg/dL Total Bilirubin 1.3 H (0.2-1.0) mg/dL AST 19 (15-37) IU/L ALT 33 (14-63) IU/L Alkaline Phosphatase 49 (46-116) U/L Troponin I < 0.050 (0.000-0.056) ng/mL B-Natriuretic Peptide (<100) PG/ML Total Protein 6.2 L (6.4-8.2) g/dL Albumin 3.9 (3.4-5.0) g/dL Globulin 2.3 L (2.6-4.0) g/dL Albumin/Globulin Ratio 1.7 H (0.9-1.6) 02/05/19 Range/Units 18:26 WBC (4.0-11.0) K/uL RBC (4.50-5.90) M/uL Hgb (13.0-17.0) g/dL Hct (38.0-50.0) % MCV (80.0-98.0) fL MCH (27.0-32.0) pg MCHC (31.0-37.0) g/dL RDW Std Deviation (28.0-62.0) fl RDW Coeff of [place] (11.0-15.0) % Plt Count (150-400) K/uL MPV (7.40-12.00) fL Neut % (Auto) (48.0-80.0) % Lymph % (Auto) (16.0-40.0) % [place] % (Auto) (0.0-15.0) % Eos % (Auto) (0.0-7.0) % Baso % (Auto) (0.0-1.5) % Neut # (Auto) (1.4-5.7) K/uL Lymph # (Auto) (0.6-2.4) K/uL [place] # (Auto) (0.0-0.8) K/uL Eos # (Auto) (0.0-0.7) K/uL Baso # (Auto) (0.0-0.1) K/uL Nucleated RBC % /100WBC Nucleated RBCs # K/uL INR Sodium (136-148) mmol/L Potassium (3.5-5.1) mmol/L Chloride (98-107) mmol/L Carbon Dioxide (21.0-32.0) mmol/L BUN (7.0-18.0) mg/dL Creatinine (0.8-1.3) mg/dL Est Cr Clr Drug Dosing Estimated GFR (MDRD) ml/min Glucose (74-106) mg/dL Calcium (8.5-10.1) mg/dL Total Bilirubin (0.2-1.0) mg/dL AST (15-37) IU/L ALT (14-63) IU/L Alkaline Phosphatase (46-116) U/L Troponin I (0.000-0.056) ng/mL B-Natriuretic Peptide 278 H (<100) PG/ML Total Protein (6.4-8.2) g/dL Albumin (3.4-5.0) g/dL Globulin (2.6-4.0) g/dL Albumin/Globulin Ratio (0.9-1.6) Result Diagrams: 02/08/19 05:55 02/08/19 05:55 Problem List Initiated/Reviewed/Updated: Yes Orders Last 24hrs: Active Orders 24 hr Category Date Time Status Admission Status [Patient Status] [ADT] Stat ADT 02/05/19 20:00 Active Antiembolic Devices [RC] PER UNIT ROUTINE Care 02/05/19 20:00 Ordered Cardiac Monitoring [RC] . DIRECTED Care 02/05/19 18:25 Active EKG 12 Lead [EKG Documentation Completion] [RC] STAT Care 02/05/19 19:03 Active EKG Documentation Completion [RC] STAT Care 02/05/19 18:25 Active Orthostatic Vital Signs [RC] ASDIRECTED Care 02/05/19 20:03 Ordered Oxygen Therapy [RC] PRN Care 02/05/19 20:00 Ordered Oxygen Therapy, ED [RC] ASDIRECTED Care 02/05/19 18:25 Active Pulse Oximetry [RC] ASDIRECTED Care 02/05/19 18:25 Active VTE/DVT Education [RC] PER UNIT ROUTINE Care 02/05/19 20:00 Ordered Vital Signs [RC] Q4H Care 02/05/19 20:00 Ordered Regular Diet [DIET] Diet 02/05/19 Breakfast Ordered BASIC METABOLIC PANEL,BMP [CHEM] AM Lab 02/06/19 05:11 Ordered CBC W/O DIFF,HEMOGRAM [HEME] AM Lab 02/06/19 05:11 Ordered MAGNESIUM [CHEM] Stat Lab 02/05/19 20:01 Ordered TROPONIN I [CHEM] Q6H Lab 02/06/19 00:00 Ordered TROPONIN I [CHEM] Q6H Lab 02/06/19 06:00 Ordered Aspirin [Ecotrin] Med 02/06/19 09:00 Ordered 81 mg PO DAILY Diltiazem HCl [Dilt-XR] Med 02/06/19 09:00 Ordered 120 mg PO DAILY Metoprolol Succinate [Toprol XL] Med 02/05/19 21:00 Ordered 100 mg PO BID Morphine [MS Contin] Med 02/05/19 21:00 Ordered 15 mg PO BID Sodium Chloride 0.9% [Normal Saline] 1,000 ml Med 02/05/19 18:30 Active IV STAT Sodium Chloride 0.9% [Saline Flush] Med 02/05/19 18:26 Active 10 ml FLUSH ASDIRECTED PRN Sodium Chloride 0.9% [Saline Flush] Med 02/05/19 18:26 Active 2.5 ml FLUSH ASDIRECTED PRN atorvaSTATin [Lipitor] Med 02/05/19 21:00 Ordered 40 mg PO BEDTIME Saline Lock Insert [OM.PC] Stat Oth 02/05/19 18:25 Ordered Sequential Compression Device [OM.PC] Per Unit Routine Oth 02/05/19 20:00 Ordered Medication Orders Aspirin (Ecotrin) 81 mg PO DAILY MARCIAL Atorvastatin Calcium (Lipitor) 40 mg PO BEDTIME MARCIAL Sodium Chloride (Normal Saline) 1,000 mls @ 125 mls/hr IV STAT MARCIAL Last Admin: 02/05/19 18:38 Dose: 125 mls/hr Metoprolol Succinate (Toprol Xl) 100 mg PO BID MARCIAL Morphine Sulfate (Ms Contin) 15 mg PO BID MARCIAL Non-Formulary Medication (Diltiazem Hcl [Dilt-Xr]) 120 mg PO DAILY MARCIAL Sodium Chloride (Saline Flush) 10 ml FLUSH ASDIRECTED PRN PRN Reason: Keep Vein Open Last Admin: 02/05/19 18:38 Dose: 10 ml Sodium Chloride (Saline Flush) 2.5 ml FLUSH ASDIRECTED PRN PRN Reason: Keep Vein Open Last Admin: 02/05/19 18:39 Dose: 2.5 ml Assessment/Plan Comment:: 64 yo male who presents with dizziness and palpitations found to be in atrial fibrillation with RVR. Due to his low blood pressure we will discontinue his nitro paste. Will continue to monitor his heart rate and give rate controlling medications as blood pressure will allow.
[2019-02-05] MEDS ORDERED: Sodium Chloride 0.9% 1,000 ML IV ONE (21:49)
[2019-02-05] MEDS: atorvaSTATin 10 MG Tab PO SCH ×2 (22:02→22:34)
[2019-02-05] MEDS: Morphine 15 MG Tab.ER PO SCH (22:02)
[2019-02-05] MEDS: Metoprolol Succinate 100 MG Tab.ER PO SCH (22:03)
[2019-02-06] MEDS: Sodium Chloride 0.9% 1,000 ML IV SCH (02:51)
[2019-02-06 06:47] LABS: CHLORIDE,CL 112 mmol/L (98-107); SODIUM,NA 143 mmol/L (136-148)
[2019-02-06] MEDS ORDERED: Non-Formulary Medication 1 Each (Diltiazem Hcl [Dilt-Xr] 120 MG) PO SCH (09:00)
[2019-02-06] MEDS: Aspirin 325 MG Tab.EC PO SCH (10:01)
[2019-02-06] MEDS: Morphine 15 MG Tab.ER PO SCH ×2 (10:02→21:12)
[2019-02-06] MEDS: Metoprolol Succinate 100 MG Tab.ER PO SCH ×2 (10:02→21:12)
--- NOTE | 2019-02-06 15:52 | CONS ---
DATE OF CONSULTATION: DATE OF : 1955 PRIMARY CARE PHYSICIAN: Renée PCP HISTORY OF PRESENT ILLNESS: A 64-year-old male with history of CAD, history of CABG, hypertension, hyperlipidemia with the diagnoses of multiple myeloma diagnosed in October of 2017. I saw him last time due to palpitation and shortness of breath. We did the angiogram in 2018. There is no amenable disease, and his graft to the OCHOA to LAD as well as the SVG to diagonal seemed to be patent at that time, and SVG to the RCA seemed to be totally occluded, but the RCA got a collateral from the left coronaries, and I have not seen him since last year. At this time, he was admitted in the hospital because of feeling dizzy and heart racing over the past two weeks. He also has lost 20 pounds from the last year. He has also treatment for multiple myeloma with chemotherapy every two weeks or so. He stated that over the past two weeks he feels more palpitation and heart racing, and he also felt shortness of breath as well. When he gets up and down, he feels more dizzy, had to sit down, he feels like he is going to pass out, but he denies fall or loss of consciousness. REVIEW OF SYSTEMS: Except for indicated in HPI, otherwise, has been negative. Chest pain, leg swelling. MEDICATIONS: 1. Metoprolol 100 mg twice a day. 2. Aspirin 81 mg once a day. 3. Diltiazem 120 mg once a day. 4. Hydrochlorothiazide 25 mg once a day, however, he stopped taking dose since November 2018. 5. He also taking Flomax for his prostate as well. PAST MEDICAL HISTORY: 1. Hypertension. 2. CAD. 3. CABG x4. 4. Hyperlipidemia. 5. Recent diagnosis of multiple myeloma with ongoing chemotherapy. SOCIAL HISTORY: History of alcoholic abuse. Former smoker. None. History of depression. FAMILY HISTORY: No family history of CAD. PHYSICAL EXAMINATION: VITAL SIGNS: Initial blood pressure was 95/63 with heart rate of 100 to 120 with atrial fibrillation, O2 saturation of 94 on room air, respiration 11, temperature is 97.2. Orthostatic vital signs have been positive; lying position, blood pressure 131/70, heart rate of 68, and standing position, 96/60 with a heart rate of 84. HEENT: Not pale. No jaundice. No JVD. HEART: Normal S1, no murmur. LUNGS: Clear. No crackles. No wheezing. ABDOMEN: Soft, nontender. Bowel sounds are present. No hepatosplenomegaly. LEGS: No edema. LABORATORY INVESTIGATION: EKG: February 04, 2019, atrial fibrillation, heart rate of 107, QRS duration 93. Last night, he was given Lanoxin 250 IV push and he was converted to sinus rhythm, currently heart rate of 70 to 80. He stated that after he was converted, he feels much better. No more dizziness. No heart racing. This is the first time he was diagnosed with atrial fibrillation. Past cardiac test including echocardiogram in October 2017, ejection fraction of 50% to 55%. Mild MR, mild TR. Holter monitor in September 2017, sinus rhythm, 42 to 84, average heart rate of 51, symptomatic paroxysmal atrial tachycardia, PVCs less than 1%. Cardiac catheterization in October 2017, left main normal. LAD totally occluded. Circumflex 80%, small arteries. RCA totally occluded and PLV totally occluded with the left coronaries to right collateral circulation. OCHOA to LAD patent, SVG to diagonal patent, SVG to RCA totally occluded. ASSESSMENT AND PLAN: This is a 64-year-old male with history of coronary artery bypass grafting, coronary artery disease, and coronary artery bypass grafting in 2000, hypertension, hyperlipidemia with new onset atrial fibrillation, orthostatic hypotension. It seemed that orthostatic hypotension could have caused his dizziness symptoms as well as the low blood pressure. This could be contributed from the blood pressure medication including the Flomax, Diltiazem, and metoprolol. I will stop diltiazem and Flomax. I will continue the metoprolol 100 mg twice a day. He should be given more hydration. He has lost weight, possibly lost appetite and encourage p.o. intake. Regarding his atrial fibrillation, his risks of a stroke from CHADS-Vasc score is at least 3. He should be on the long-term anticoagulation. I would add him on to Eliquis 5 mg twice a day, and I will also start him on amiodarone as well, I will start him on 200 mg once a day. I will check TSH as well. Also, we will do a 2D echocardiogram. JUSTIN / JITENDRA /[id number]
--- NOTE | 2019-02-06 16:32 | PCM.PN ---
- General Info Date of Service: 02/06/19 Subjective Update: No acute events overnight. Converted to sinus arrhythmia, rate controlled. This morning he stated he was feeling better but still somewhat weak. No chest pain , dyspnea. - Patient Data Vitals - Most Recent: Last Vital Signs Temp 36.7 C 02/06/19 15:59 Pulse 55 L 02/06/19 15:59 Resp 11 L 02/06/19 15:59 BP 114/60 02/06/19 15:59 Pulse Ox 94 L 02/06/19 15:59 Orthostatic Blood Pressure [ 131/70 laying] Orthostatic Blood Pressure [ 104/43 Standing] Orthostatic Blood Pressure [ 96/60 Sitting] Weight - Most Recent: 81.67 kg I&O - Last 24 Hours: Intake & Output 02/06/19 02/06/19 02/06/19 06:59 14:59 22:59 Intake Total 999 269 Output Total 500 200 Balance 499 69 Lab Results Last 24 Hours: Laboratory Results - last 24 hr 02/05/19 02/05/19 02/05/19 Range/Units 18:26 18:26 18:26 WBC 9.09 (4.0-11.0) K/uL RBC 5.57 (4.50-5.90) M/uL Hgb 15.8 (13.0-17.0) g/dL Hct 46.1 (38.0-50.0) % MCV 82.8 (80.0-98.0) fL MCH 28.4 (27.0-32.0) pg MCHC 34.3 (31.0-37.0) g/dL RDW Std Deviation 43.6 (28.0-62.0) fl RDW Coeff of Isela 15 (11.0-15.0) % Plt Count 201 (150-400) K/uL MPV 10.30 (7.40-12.00) fL Neut % (Auto) 80.8 H (48.0-80.0) % Lymph % (Auto) 9.2 L (16.0-40.0) % Parke % (Auto) 8.4 (0.0-15.0) % Eos % (Auto) 1.4 (0.0-7.0) % Baso % (Auto) 0.2 (0.0-1.5) % Neut # (Auto) 7.3 H (1.4-5.7) K/uL Lymph # (Auto) 0.8 (0.6-2.4) K/uL Parke # (Auto) 0.8 (0.0-0.8) K/uL Eos # (Auto) 0.1 (0.0-0.7) K/uL Baso # (Auto) 0.0 (0.0-0.1) K/uL Nucleated RBC % 0.0 /100WBC Nucleated RBCs # 0 K/uL INR 1.02 Sodium 143 (136-148) mmol/L Potassium 3.7 (3.5-5.1) mmol/L Chloride 106 (98-107) mmol/L Carbon Dioxide 27.1 (21.0-32.0) mmol/L BUN 11 (7.0-18.0) mg/dL Creatinine 0.9 (0.8-1.3) mg/dL Est Cr Clr Drug Dosing TNP Estimated GFR (MDRD) > 60.0 ml/min Glucose 121 H (74-106) mg/dL Calcium 9.1 (8.5-10.1) mg/dL Magnesium (1.8-2.4) mg/dL Total Bilirubin 1.3 H (0.2-1.0) mg/dL AST 19 (15-37) IU/L ALT 33 (14-63) IU/L Alkaline Phosphatase 49 (46-116) U/L Troponin I < 0.050 (0.000-0.056) ng/mL B-Natriuretic Peptide (<100) PG/ML Total Protein 6.2 L (6.4-8.2) g/dL Albumin 3.9 (3.4-5.0) g/dL Globulin 2.3 L (2.6-4.0) g/dL Albumin/Globulin Ratio 1.7 H (0.9-1.6) TSH 3rd Generation (0.36-3.74) uIU/mL 02/05/19 02/05/19 02/06/19 Range/Units 18:26 18:26 00:26 WBC (4.0-11.0) K/uL RBC (4.50-5.90) M/uL Hgb (13.0-17.0) g/dL Hct (38.0-50.0) % MCV (80.0-98.0) fL MCH (27.0-32.0) pg MCHC (31.0-37.0) g/dL RDW Std Deviation (28.0-62.0) fl RDW Coeff of Isela (11.0-15.0) % Plt Count (150-400) K/uL MPV (7.40-12.00) fL Neut % (Auto) (48.0-80.0) % Lymph % (Auto) (16.0-40.0) % Parke % (Auto) (0.0-15.0) % Eos % (Auto) (0.0-7.0) % Baso % (Auto) (0.0-1.5) % Neut # (Auto) (1.4-5.7) K/uL Lymph # (Auto) (0.6-2.4) K/uL Parke # (Auto) (0.0-0.8) K/uL Eos # (Auto) (0.0-0.7) K/uL Baso # (Auto) (0.0-0.1) K/uL Nucleated RBC % /100WBC Nucleated RBCs # K/uL INR Sodium (136-148) mmol/L Potassium (3.5-5.1) mmol/L Chloride (98-107) mmol/L Carbon Dioxide (21.0-32.0) mmol/L BUN (7.0-18.0) mg/dL Creatinine (0.8-1.3) mg/dL Est Cr Clr Drug Dosing Estimated GFR (MDRD) ml/min Glucose (74-106) mg/dL Calcium (8.5-10.1) mg/dL Magnesium 2.1 (1.8-2.4) mg/dL Total Bilirubin (0.2-1.0) mg/dL AST (15-37) IU/L ALT (14-63) IU/L Alkaline Phosphatase (46-116) U/L Troponin I < 0.050 (0.000-0.056) ng/mL B-Natriuretic Peptide 278 H (<100) PG/ML Total Protein (6.4-8.2) g/dL Albumin (3.4-5.0) g/dL Globulin (2.6-4.0) g/dL Albumin/Globulin Ratio (0.9-1.6) TSH 3rd Generation (0.36-3.74) uIU/mL 02/06/19 02/06/19 02/06/19 Range/Units 06:05 06:05 06:05 WBC 4.37 (4.0-11.0) K/uL RBC 4.49 L (4.50-5.90) M/uL Hgb 12.5 L (13.0-17.0) g/dL Hct 37.2 L (38.0-50.0) % MCV 82.9 (80.0-98.0) fL MCH 27.8 (27.0-32.0) pg MCHC 33.6 (31.0-37.0) g/dL RDW Std Deviation 44.0 (28.0-62.0) fl RDW Coeff of Isela 15 (11.0-15.0) % Plt Count 134 L (150-400) K/uL MPV 10.20 (7.40-12.00) fL Neut % (Auto) (48.0-80.0) % Lymph % (Auto) (16.0-40.0) % Parke % (Auto) (0.0-15.0) % Eos % (Auto) (0.0-7.0) % Baso % (Auto) (0.0-1.5) % Neut # (Auto) (1.4-5.7) K/uL Lymph # (Auto) (0.6-2.4) K/uL Parke # (Auto) (0.0-0.8) K/uL Eos # (Auto) (0.0-0.7) K/uL Baso # (Auto) (0.0-0.1) K/uL Nucleated RBC % 0.0 /100WBC Nucleated RBCs # 0 K/uL INR Sodium 143 (136-148) mmol/L Potassium 3.7 (3.5-5.1) mmol/L Chloride 112 H (98-107) mmol/L Carbon Dioxide 24.1 (21.0-32.0) mmol/L BUN 9 (7.0-18.0) mg/dL Creatinine 0.5 L (0.8-1.3) mg/dL Est Cr Clr Drug Dosing 152.08 Estimated GFR (MDRD) > 60.0 ml/min Glucose 92 (74-106) mg/dL Calcium 7.5 L (8.5-10.1) mg/dL Magnesium (1.8-2.4) mg/dL Total Bilirubin (0.2-1.0) mg/dL AST (15-37) IU/L ALT (14-63) IU/L Alkaline Phosphatase (46-116) U/L Troponin I < 0.050 (0.000-0.056) ng/mL B-Natriuretic Peptide (<100) PG/ML Total Protein (6.4-8.2) g/dL Albumin (3.4-5.0) g/dL Globulin (2.6-4.0) g/dL Albumin/Globulin Ratio (0.9-1.6) TSH 3rd Generation (0.36-3.74) uIU/mL 02/06/19 Range/Units 06:05 WBC (4.0-11.0) K/uL RBC (4.50-5.90) M/uL Hgb (13.0-17.0) g/dL Hct (38.0-50.0) % MCV (80.0-98.0) fL MCH (27.0-32.0) pg MCHC (31.0-37.0) g/dL RDW Std Deviation (28.0-62.0) fl RDW Coeff of Isela (11.0-15.0) % Plt Count (150-400) K/uL MPV (7.40-12.00) fL Neut % (Auto) (48.0-80.0) % Lymph % (Auto) (16.0-40.0) % Parke % (Auto) (0.0-15.0) % Eos % (Auto) (0.0-7.0) % Baso % (Auto) (0.0-1.5) % Neut # (Auto) (1.4-5.7) K/uL Lymph # (Auto) (0.6-2.4) K/uL Parke # (Auto) (0.0-0.8) K/uL Eos # (Auto) (0.0-0.7) K/uL Baso # (Auto) (0.0-0.1) K/uL Nucleated RBC % /100WBC Nucleated RBCs # K/uL INR Sodium (136-148) mmol/L Potassium (3.5-5.1) mmol/L Chloride (98-107) mmol/L Carbon Dioxide (21.0-32.0) mmol/L BUN (7.0-18.0) mg/dL Creatinine (0.8-1.3) mg/dL Est Cr Clr Drug Dosing Estimated GFR (MDRD) ml/min Glucose (74-106) mg/dL Calcium (8.5-10.1) mg/dL Magnesium (1.8-2.4) mg/dL Total Bilirubin (0.2-1.0) mg/dL AST (15-37) IU/L ALT (14-63) IU/L Alkaline Phosphatase (46-116) U/L Troponin I (0.000-0.056) ng/mL B-Natriuretic Peptide (<100) PG/ML Total Protein (6.4-8.2) g/dL Albumin (3.4-5.0) g/dL Globulin (2.6-4.0) g/dL Albumin/Globulin Ratio (0.9-1.6) TSH 3rd Generation 1.09 (0.36-3.74) uIU/mL Med Orders - Current: Current Medications Amiodarone HCl (Cordarone) 200 mg PO DAILY [facility] Apixaban (Eliquis) 5 mg PO BID [facility] Aspirin (Ecotrin) 81 mg PO DAILY [facility] Last Admin: 02/06/19 10:01 Dose: 81 mg Atorvastatin Calcium (Lipitor) 40 mg PO BEDTIME [facility] Last Admin: 02/05/19 22:34 Dose: Not Given Sodium Chloride (Normal Saline) 1,000 mls @ 125 mls/hr IV STAT [facility] Last Admin: 02/06/19 02:51 Dose: 125 mls/hr Metoprolol Succinate (Toprol Xl) 100 mg PO BID [facility] Last Admin: 02/06/19 10:02 Dose: 100 mg Morphine Sulfate (Ms Contin) 15 mg PO BID [facility] Last Admin: 02/06/19 10:02 Dose: 15 mg Sodium Chloride (Saline Flush) 10 ml FLUSH ASDIRECTED PRN PRN Reason: Keep Vein Open Last Admin: 02/05/19 18:38 Dose: 10 ml Sodium Chloride (Saline Flush) 2.5 ml FLUSH ASDIRECTED PRN PRN Reason: Keep Vein Open Last Admin: 02/05/19 18:39 Dose: 2.5 ml Discontinued Medications Aspirin (Aspirin) 324 mg PO ONETIME ONE Stop: 02/05/19 18:27 Last Admin: 02/05/19 18:37 Dose: 324 mg Digoxin (Lanoxin) 250 mcg IVPUSH ONETIME ONE Stop: 02/05/19 20:02 Last Admin: 02/05/19 22:03 Dose: 250 mcg Sodium Chloride (Normal Saline) 1,000 mls @ 999 mls/hr IV .Bolus ONE Stop: 02/05/19 22:49 Last Admin: 02/05/19 22:04 Dose: 999 mls/hr Nitroglycerin (Nitro-Bid 2%) 1 gm TOP ONETIME ONE Stop: 02/05/19 18:27 Last Admin: 02/05/19 18:38 Dose: 1 gm Non-Formulary Medication (Diltiazem Hcl [Dilt-Xr]) 120 mg PO DAILY [facility] Last Admin: 02/06/19 10:40 Dose: 120 mg - Exam General: Alert, Oriented, Cooperative, No Acute Distress Lungs: Clear to Auscultation, Normal Respiratory Effort. No: Crackles, Wheezing Cardiovascular: Regular Rate, Irregular Rhythm GI/Abdominal Exam: Normal Bowel Sounds, Soft, Non-Tender Extremities: Normal Inspection, No Pedal Edema Skin: Warm, Dry - Problem List Review Problem List Initiated/Reviewed/Updated: Yes - Plan Plan:: A: 1. Afib, rate controlled 2. Dizziness 3. PMH CAD, CABG, Multiple myeloma P: 1. Afib, rate controlled. Converted to sinus arrhythmia. Dr. Schneider has been consulted and is following the patient. Will continue with current management. Will get Echo tomorrow. 2. PMH CAD, CABG- continue home medications Dispo:1-2 days
[2019-02-06] MEDS ORDERED: Amiodarone 200 MG Tab PO SCH (21:00)
[2019-02-06] MEDS: atorvaSTATin 10 MG Tab PO SCH (21:12)
[2019-02-06] MEDS: Apixaban 5 MG Tab PO SCH (21:12)
[2019-02-07 05:58] LABS: CHLORIDE,CL 109 mmol/L (98-107); SODIUM,NA 142 mmol/L (136-148)
[2019-02-07] MEDS: Metoprolol Succinate 100 MG Tab.ER PO SCH ×2 (09:00→21:14)
[2019-02-07] MEDS: Morphine 15 MG Tab.ER PO SCH ×2 (09:03→21:14)
[2019-02-07] MEDS: Aspirin 325 MG Tab.EC PO SCH (09:03)
[2019-02-07] MEDS: Apixaban 5 MG Tab PO SCH ×2 (09:03→21:13)
--- NOTE | 2019-02-07 13:19 | PCM.PN ---
- General Info Date of Service: 02/07/19 Subjective Update: Patient had episode of Atrial flutter overnight. He was started on Amiodarone drip. This morning, in sinus arrhythmia, rate controlled. Denies any chest pain , dyspnea. - Patient Data Vitals - Most Recent: Last Vital Signs Temp 36.3 C 02/07/19 12:00 Pulse 71 02/07/19 12:00 Resp 12 02/07/19 12:00 BP 142/94 H 02/07/19 12:00 Pulse Ox 97 02/07/19 12:00 Orthostatic Blood Pressure [ 131/70 laying] Orthostatic Blood Pressure [ 104/43 Standing] Orthostatic Blood Pressure [ 96/60 Sitting] Weight - Most Recent: 81.67 kg Lab Results Last 24 Hours: Laboratory Results - last 24 hr 02/06/19 02/07/19 02/07/19 Range/Units 06:05 05:08 05:08 WBC 4.14 (4.0-11.0) K/uL RBC 4.27 L (4.50-5.90) M/uL Hgb 11.8 L (13.0-17.0) g/dL Hct 35.6 L (38.0-50.0) % MCV 83.4 (80.0-98.0) fL MCH 27.6 (27.0-32.0) pg MCHC 33.1 (31.0-37.0) g/dL RDW Std Deviation 44.4 (28.0-62.0) fl RDW Coeff of Isela 15 (11.0-15.0) % Plt Count 112 L (150-400) K/uL MPV 10.00 (7.40-12.00) fL Nucleated RBC % 0.0 /100WBC Nucleated RBCs # 0 K/uL Sodium 142 (136-148) mmol/L Potassium 3.5 (3.5-5.1) mmol/L Chloride 109 H (98-107) mmol/L Carbon Dioxide 25.2 (21.0-32.0) mmol/L BUN 10 (7.0-18.0) mg/dL Creatinine 0.6 L (0.8-1.3) mg/dL Est Cr Clr Drug Dosing 126.74 mL/min Estimated GFR (MDRD) > 60.0 ml/min Glucose 105 (74-106) mg/dL Calcium 7.5 L (8.5-10.1) mg/dL Total Bilirubin 0.8 (0.2-1.0) mg/dL AST 11 L (15-37) IU/L ALT 21 (14-63) IU/L Alkaline Phosphatase 31 L (46-116) U/L Total Protein 4.6 L (6.4-8.2) g/dL Albumin 2.8 L (3.4-5.0) g/dL Globulin 1.8 L (2.6-4.0) g/dL Albumin/Globulin Ratio 1.6 (0.9-1.6) TSH 3rd Generation 1.09 (0.36-3.74) uIU/mL Med Orders - Current: Current Medications Apixaban (Eliquis) 5 mg PO BID [facility] Last Admin: 02/07/19 09:03 Dose: 5 mg Aspirin (Ecotrin) 81 mg PO DAILY [facility] Last Admin: 02/07/19 09:03 Dose: 81 mg Atorvastatin Calcium (Lipitor) 40 mg PO BEDTIME [facility] Last Admin: 02/06/19 21:12 Dose: 40 mg Sodium Chloride (Normal Saline) 1,000 mls @ 125 mls/hr IV STAT [facility] Last Admin: 02/06/19 02:51 Dose: 125 mls/hr Amiodarone HCl/Dextrose (Nexterone In Dextrose 360 Mg/200 Ml) 360 mg in 200 mls @ 16.667 mls/hr IV ASDIRECTED [facility]; Protocol Last Admin: 02/07/19 04:53 Dose: 0.5 mg/min, 16.667 mls/hr Metoprolol Succinate (Toprol Xl) 100 mg PO DAILY [facility] Last Admin: 02/07/19 09:00 Dose: Not Given Morphine Sulfate (Ms Contin) 15 mg PO BID [facility] Last Admin: 02/07/19 09:03 Dose: 15 mg Sodium Chloride (Saline Flush) 10 ml FLUSH ASDIRECTED PRN PRN Reason: Keep Vein Open Last Admin: 02/05/19 18:38 Dose: 10 ml Sodium Chloride (Saline Flush) 2.5 ml FLUSH ASDIRECTED PRN PRN Reason: Keep Vein Open Last Admin: 02/05/19 18:39 Dose: 2.5 ml Discontinued Medications Amiodarone HCl (Cordarone) 200 mg PO DAILY [facility] Aspirin (Aspirin) 324 mg PO ONETIME ONE Stop: 02/05/19 18:27 Last Admin: 02/05/19 18:37 Dose: 324 mg Digoxin (Lanoxin) 250 mcg IVPUSH ONETIME ONE Stop: 02/05/19 20:02 Last Admin: 02/05/19 22:03 Dose: 250 mcg Sodium Chloride (Normal Saline) 1,000 mls @ 999 mls/hr IV .Bolus ONE Stop: 02/05/19 22:49 Last Admin: 02/05/19 22:04 Dose: 999 mls/hr Metoprolol Succinate (Toprol Xl) 100 mg PO BID [facility] Last Admin: 02/06/19 21:12 Dose: Not Given Nitroglycerin (Nitro-Bid 2%) 1 gm TOP ONETIME ONE Stop: 02/05/19 18:27 Last Admin: 02/05/19 18:38 Dose: 1 gm Non-Formulary Medication (Diltiazem Hcl [Dilt-Xr]) 120 mg PO DAILY [facility] Last Admin: 02/06/19 10:40 Dose: 120 mg - Exam General: Alert, Oriented, Cooperative, No Acute Distress Lungs: Clear to Auscultation, Normal Respiratory Effort. No: Crackles, Wheezing Cardiovascular: Regular Rate, Irregular Rhythm GI/Abdominal Exam: Normal Bowel Sounds, Soft, Non-Tender Extremities: Normal Inspection, No Pedal Edema Skin: Warm, Dry - Problem List Review Problem List Initiated/Reviewed/Updated: Yes - My Orders Last 24 Hours: My Active Orders 02/07/19 11:01 Patient Status [ADT] Routine 02/07/19 13:12 Consult to Physician [CONS] Routine 02/07/19 13:13 Notify Provider Consults [RC] ASDIRECTED - Plan Plan:: A: 1. Afib, rate controlled 2. Dizziness 3. PMH CAD, CABG, Multiple myeloma P: 1. Afib, rate controlled. Continue on Amiodarone drip and metoprolol for now. On Eliquis. Dispo: plan to DC tomorrow
[2019-02-07] MEDS: atorvaSTATin 10 MG Tab PO SCH (21:14)
[2019-02-08 06:31] LABS: CHLORIDE,CL 109 mmol/L (98-107); SODIUM,NA 144 mmol/L (136-148)
[2019-02-08] MEDS ORDERED: Amiodarone 200 MG Tab PO SCH (09:00)
[2019-02-08] MEDS: Aspirin 325 MG Tab.EC PO SCH (09:14)
[2019-02-08] MEDS: Apixaban 5 MG Tab PO SCH (09:14)
[2019-02-08] MEDS: Morphine 15 MG Tab.ER PO SCH (09:14)
[2019-02-08] MEDS: Metoprolol Succinate 100 MG Tab.ER PO SCH (09:18)
--- NOTE | 2019-02-08 11:26 | PCM.DCSUM1 ---
Discharge Summary - Discharge Data Discharge Date: 02/08/19 Discharge Disposition: Home, Self-Care 01 Condition: Fair - Patient Summary/Data Consults: Consultations 02/06/19 10:14 Consult to Physical Therapy [PT Evaluation and Treatment] [CONS] Routine 02/07/19 13:12 Consult to Physician [CONS] Routine Hospital Course: 64 yo male with pmh of CAD, CABG, atrial fibrillation, multiple myeloma on chronic narcotics who presents with a three week history of dizziness and palpitations. He was discovered to have atrial fibrillation with RVR. His heart rate was in the 150s and his blood pressure was in the 90s systolic. His HCTZ, diovan, diltiazem, and flomax were discontinued. He was loaded with IV amiodarone and his metoprolol XL was resumed at a daily rate of 100mg. We did get good rate control on this regiment and his symptoms of dizziness resolved. He was started on Eliquis. Dr. Jacobson was consulted. Patient was discharged home to have follow up with Dr. Jacobson on 02/10/19. - Discharge Plan Prescriptions/Med Rec: Amiodarone [Cordarone] 200 mg PO DAILY #30 tablet Apixaban [Eliquis] 5 mg PO BID #60 tablet Home Medications: Home Meds Multivitamin [Multivitamins] 1 each PO DAILY 02/11/14 [History] Adams-3/DHA/Epa/Fish Oil [Fish Oil Dr 500 mg Softgel] 1,000 mg PO DAILY [History] atorvaSTATin [Lipitor] 40 mg PO BEDTIME 02/11/14 [History] Albuterol [Ventolin HFA] 1 puff INH Q4H PRN 02/11/18 [History] Morphine Sulfate [Morphine Sulfate ER] 15 mg PO BID 02/04/19 [History] Prochlorperazine [Compazine] 10 mg PO TID PRN 02/04/19 [History] Amiodarone [Cordarone] 200 mg PO DAILY #30 tablet 02/08/19 [Rx] Apixaban [Eliquis] 5 mg PO BID #60 tablet 02/08/19 [Rx] Metoprolol Succinate [Toprol XL 100mg] 100 mg PO DAILY tab.er 02/08/19 [Rx] Referrals: Tu Schneider MD [Physician] - 02/10/19 2:30 pm Estefani Lambert PA [Physician Project Management Instructor] - 02/18/19 8:00 am - Discharge Summary/Plan Comment DC Time >30 min.: No - Patient Data Vitals - Most Recent: Last Vital Signs Temp 36.3 C 02/08/19 09:00 Pulse 61 02/08/19 09:18 Resp 12 02/08/19 09:00 BP 167/88 H 02/08/19 09:18 Pulse Ox 96 02/08/19 08:00 Orthostatic Blood Pressure [ 131/70 laying] Orthostatic Blood Pressure [ 104/43 Standing] Orthostatic Blood Pressure [ 96/60 Sitting] Weight - Most Recent: 81.647 kg I&O - Last 24 hours: Intake & Output 02/07/19 02/08/19 02/08/19 22:59 06:59 14:59 Intake Total 386 450 Balance 386 450 Lab Results - Last 24 hrs: Laboratory Results - last 24 hr 02/08/19 02/08/19 Range/Units 05:55 05:55 WBC 4.25 (4.0-11.0) K/uL RBC 4.30 L (4.50-5.90) M/uL Hgb 12.2 L (13.0-17.0) g/dL Hct 35.2 L (38.0-50.0) % MCV 81.9 (80.0-98.0) fL MCH 28.4 (27.0-32.0) pg MCHC 34.7 (31.0-37.0) g/dL RDW Std Deviation 42.9 (28.0-62.0) fl RDW Coeff of Isela 14 (11.0-15.0) % Plt Count 108 L (150-400) K/uL MPV 9.90 (7.40-12.00) fL Nucleated RBC % 0.0 /100WBC Nucleated RBCs # 0 K/uL Sodium 144 (136-148) mmol/L Potassium 3.6 (3.5-5.1) mmol/L Chloride 109 H (98-107) mmol/L Carbon Dioxide 26.0 (21.0-32.0) mmol/L BUN 6 L (7.0-18.0) mg/dL Creatinine 0.5 L (0.8-1.3) mg/dL Est Cr Clr Drug Dosing 152.08 mL/min Estimated GFR (MDRD) > 60.0 ml/min Glucose 91 (74-106) mg/dL Calcium 7.8 L (8.5-10.1) mg/dL Med Orders - Current: Current Medications Amiodarone HCl (Cordarone) 200 mg PO DAILY [facility] Last Admin: 02/08/19 09:13 Dose: 200 mg Apixaban (Eliquis) 5 mg PO BID [facility] Last Admin: 02/08/19 09:14 Dose: 5 mg Aspirin (Ecotrin) 81 mg PO DAILY [facility] Last Admin: 02/08/19 09:14 Dose: 81 mg Atorvastatin Calcium (Lipitor) 40 mg PO BEDTIME [facility] Last Admin: 02/07/19 21:14 Dose: 40 mg Sodium Chloride (Normal Saline) 1,000 mls @ 125 mls/hr IV STAT [facility] Last Admin: 02/06/19 02:51 Dose: 125 mls/hr Metoprolol Succinate (Toprol Xl) 100 mg PO DAILY [facility] Last Admin: 02/08/19 09:18 Dose: 100 mg Morphine Sulfate (Ms Contin) 15 mg PO BID [facility] Last Admin: 02/08/19 09:14 Dose: 15 mg Sodium Chloride (Saline Flush) 10 ml FLUSH ASDIRECTED PRN PRN Reason: Keep Vein Open Last Admin: 02/05/19 18:38 Dose: 10 ml Sodium Chloride (Saline Flush) 2.5 ml FLUSH ASDIRECTED PRN PRN Reason: Keep Vein Open Last Admin: 02/05/19 18:39 Dose: 2.5 ml Discontinued Medications Amiodarone HCl (Cordarone) 200 mg PO DAILY [facility] Aspirin (Aspirin) 324 mg PO ONETIME ONE Stop: 02/05/19 18:27 Last Admin: 02/05/19 18:37 Dose: 324 mg Digoxin (Lanoxin) 250 mcg IVPUSH ONETIME ONE Stop: 02/05/19 20:02 Last Admin: 02/05/19 22:03 Dose: 250 mcg Sodium Chloride (Normal Saline) 1,000 mls @ 999 mls/hr IV .Bolus ONE Stop: 02/05/19 22:49 Last Admin: 02/05/19 22:04 Dose: 999 mls/hr Amiodarone HCl/Dextrose (Nexterone In Dextrose 360 Mg/200 Ml) 360 mg in 200 mls @ 16.667 mls/hr IV ASDIRECTED [facility]; Protocol Last Infusion: 02/07/19 21:13 Dose: 0 mg/min, 0 mls/hr Metoprolol Succinate (Toprol Xl) 100 mg PO BID [facility] Last Admin: 02/06/19 21:12 Dose: Not Given Nitroglycerin (Nitro-Bid 2%) 1 gm TOP ONETIME ONE Stop: 02/05/19 18:27 Last Admin: 02/05/19 18:38 Dose: 1 gm Non-Formulary Medication (Diltiazem Hcl [Dilt-Xr]) 120 mg PO DAILY [facility] Last Admin: 02/06/19 10:40 Dose: 120 mg
[2019-02-08 13:21] VITALS: BP 176/92
== END 2019-02-08 13:50 | disposition home or self-care (01) | DRG 201 ==
LOC: MW.ED 18:23 → MW.ICU 20:00 → OBSVTOIN 02-07 11:01
PROVIDERS: ADMIT Internal Medicine; ATTEND Internal Medicine
DX: I48.91 Unspecified atrial fibrillation (principal); I25.10 Atherosclerotic heart disease of native coronary artery without angina pectoris; E78.00 Pure hypercholesterolemia, unspecified; I10 Essential (primary) hypertension; E66.9 Obesity, unspecified; I48.92 Unspecified atrial flutter; F32.9 Major depressive disorder, single episode, unspecified; Z87.891 Personal history of nicotine dependence; Z79.82 Long term (current) use of aspirin; Z51.11 Encounter for antineoplastic chemotherapy; Z95.1 Presence of aortocoronary bypass graft; Z79.899 Other long term (current) drug therapy; Z68.25 Body mass index [BMI] 25.0-25.9, adult
CPT/HCPCS: 36415; 71045; 71045-26; 80048; 80053; 83735; 83880; 84443; 84484; 85025; 85027; 85610; 93005; 93306; 96360; 96361; 96365; 96366; 96374; 96376; 97161-GP; 99285; 99285-25; A9270-GY; G0378; J0282; J1160; J7040